=== PATIENT | female | born 1950 | race Two or more races ===

== ENCOUNTER 2017-11-13 00:11 | Inpatient (IN) | payer MEDICARE, OTHER ==
--- NOTE | 2017-11-13 03:03 | NUR ---
REPORT RECEIVED FROM HELEN PINA. PT. ARRIVED ON THE UNIT AT 0303 VIA STRETCHER. PATIENT ADMITTED ON A 5150 HOLD DUE TO GD, DTS, DTO. PER HOLD PT. HAS BEEN OUT OF CONTROL TRYINGTO PUSH HER WAY OUT OF HER RESIDENCE. THE PATIENT HAS BEEN RECENTLY DIAGNOSED WITH PARANOIA AND SCHIZOPHRENIA DX. THE 5150 WAS RECEIVED AND THE DOCUMENTATION APPEARS TO REFLECT THE PRESENTATION OF THE PATIENT. PATIENT IS CURRENTLY LAYING ON HER BED AWAKE, HAS NO S/S OF DISTRESS NOTED. NO COMPLAINTS OF PAIN AT THIS TIME. PATIENT'S BREATHING IS UNLABORED WITH EQUAL FALL AND RISE OF THE CHEST. PATIENT IS ORIENTED X2 ON ROOM AIR. PATIENT HAS BEEN ASSISTED WITH TURNING AND REPOSITIONING Q2HRS AND PRN FOR COMFORT AND CIRCULATION. THE PATIENT HAS NO NEEDS AT THIS TIME. PATIENT IS NOTED TO BE DEPRESSED, WITHDRAWN, DISORGANIZED, AND AGITATED AT THIS TIME. DENIES SI/HI AT THIS TIME. SKIN ASSESSMENT COMPLETED AND PICTURED PLACED IN THE PT'S CHART. THE PATIENT IS UNDER THE CARE OF DR. CAMPUZANO AND THE MEDICAL CARE OF DR. HUSAIN. THE PATIENT'S BELONGING WERE INVENTORIED AND CHECKED FOR CONTRABANDS. PATIENT'S ADVANCED DIRECTIVE PREFERENCES, IMMUNIZATIONS QUESTIONNAIRE AND NECESSARY PAPERWORK ARE COMPLETED AND PLACED IN THE PT'S CHART. PATIENT WAS ORIENTED TO THE ROOM, FLOOR AND STAFF. EDUCATED PT. ON THE USAGE OF THE CALL SHULTZ. BED IS LOCKED AND LOW, BEDSIDES RAILS ARE UP X2 FOR SAFETY. WILL CONTINUE TO MONITOR Q15MNS, WITH THE HELP OF STAFF, FOR SAFETY.
[2017-11-13] MEDS ORDERED: MAGNESIUM HYDROXIDE 30 ML UDC PO PRN (03:30)
[2017-11-13] MEDS ORDERED: NITR100C6 PO (04:24)
[2017-11-13] MEDS ORDERED: ARIP30TA11 (04:24)
[2017-11-13] MEDS: LORAZEPAM 0.5 MG TABLET PO PRN ×3 (04:53→20:20)
--- NOTE | 2017-11-13 04:53 | NUR ---
GPS NOTE. C/O "CAN YOU PLEASE GET ME A GLASS OF WATER AND SOME ATIVAN. I AM FEELING A LITTLE ANXIOUS." ATIVAN 1MG PO GIVEN ORDERED. WILL CONTINUE TO MONITOR FOR SAFETY.
[2017-11-13 08:00] VITALS: BP 126/77
[2017-11-13 10:54] LABS: ALBUMIN 3.5 g/dL (3.4-5.0); BILIRUBIN,TOTAL 0.4 mg/dL (0.2-1.0); CALCIUM, SERUM 9.2 mg/dL (8.5-10.1); CREATININE 0.8 mg/dL (0.6-1.3); POTASSIUM 3.9 mmol/L (3.5-5.1); TOTAL PROTEIN, SERUM 6.3 g/dL (6.4-8.2)
[2017-11-13 16:00] VITALS: BP 136/77
--- NOTE | 2017-11-13 20:00 | NUR ---
GPS RN NOTE: RECEIVED PATIENT AWAKE AND LYING BED COMPLAINED OF ANXIETY AND PRN ATIBAN GIVEN. NO S/S OR COMPLAINTS OF PAIN AT THIS TIME. PATIENT DISPLAYING NO S/S OF APPARENT DISTRESS AT THIS TIME. PATIENT BREATHING IS UNLABORED WITH EQUAL RISE AND FALL OF THE CHEST. PATIENT ALERT AND ORIENTED X 1-2. PT COOPERATIVE AND MED COMPLIANT. PATIENT DENIES SUICIDE IDEATIONS AND HOMICIDAL IDEATIONS AT THIS TIME. PATIENT IS AMBULATORY AND HAS NO OTHER NEEDS AT THIS TIME. PATIENT EDUCATED ON THE USE OF THE CALL SHULTZ. PATIENT BED SIDE RAILS UP X2 FOR SAFETY, BED IS LOCKED AND LOW WILL CONTINUE TO MONITOR AND MAINTAIN AND MAINTAIN SAFETY.
[2017-11-13] MEDS: DIVALPROEX SODIUM 250 MG TABLET.DR PO SCH (20:20)
[2017-11-13 20:31] VITALS: BP 124/70
[2017-11-14] MEDS: ACETAMINOPHEN 325 MG TABLET PO PRN (06:30)
--- NOTE | 2017-11-14 06:33 | NUR ---
GPS RN NOTE: C/O SEVERE PAIN GENERALIZED AND REQUESTED TYLENOL PRN. GIVEN AT 0633. WILL MONITOR FOR EFFECT.
[2017-11-14 07:02] LABS: CHOLESTEROL 165 mg/dL (<200); HDL CHOLESTEROL 79 mg/dL (40-60); LDL 75 mg/dL (0-99); TRIGLYCERIDES 53 mg/dL (30-150)
[2017-11-14 08:00] VITALS: BP 99/61
[2017-11-14] MEDS: PANTOPRAZOLE 40 MG TABLET.DR PO SCH (08:53)
[2017-11-14] MEDS: ARIPIPRAZOLE 5 MG TABLET PO SCH ×2 (08:53→16:19)
[2017-11-14] MEDS: NITROFURANTOIN/NITROFURAN MAC 100 MG CAPSULE PO SCH ×2 (08:53→16:19)
[2017-11-14] MEDS: DIVALPROEX SODIUM 250 MG TABLET.DR PO SCH ×3 (08:54→16:19)
--- NOTE | 2017-11-14 11:06 | NUR ---
RN NOTES PT IS REQUESTED FOR TO BRING GLASSES. CALLED CARLIE, LEFT A MESSAGE.
--- NOTE | 2017-11-14 11:48 | NUR ---
RN NOTES MRSA SWAB DONE. 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
--- NOTE | 2017-11-14 12:03 | NUR ---
Initial Discharge Plan: Pt currently lives with her at [address] [place] [address] ([phone]). Per pt, she would like to return home to her upon discharge. JANI will work with the pt, the family and the MD regarding appropriate discharge plans. SW will form a safe and proper discharge.
--- NOTE | 2017-11-14 12:04 | NUR ---
SW spoke to pt's , Helen Hutchins ([phone]), and discussed how the pt was previously at another hospital but was discharged home before she was ready. Pt's would like to consider a facility upon discharge this time.
--- NOTE | 2017-11-14 15:09 | NUR ---
RN NOTES PT REQUESTED TO USE THE PHONE TO CALL . GAVE PHONE TO PT AND WAS SPEAKING IN A CALM VOICE RIGHT OUTSIDE THE NURSE'S STATION, SITTING IN A ALYSSA-CHAIR. SUDDENLY, PT YELLS AT ON THE PHONE AND THROWS PHONE DOWN THE HALLWAY. PT WALKS TO ROOM WITH NO ASSIST, USES THE BATHROOM, NO INJURIES NOTED AND WALKS TO HER BED. PT STATES, "I AM OKAY. I JUST WANT TO LAY DOWN." WILL CONTINUE TO MONITOR THROUGHOUT SHIFT.
--- NOTE | 2017-11-14 15:16 | NUR ---
SW conducted a substance abuse intervention with the pt.
[2017-11-14 16:04] VITALS: BP 135/56
[2017-11-14 20:00] VITALS: BP 120/65
[2017-11-14] MEDS: LORAZEPAM 0.5 MG TABLET PO PRN (21:15)
--- NOTE | 2017-11-14 21:15 | NUR ---
ATIVAN 1 MG TAB PO GIVEN FOR ANXIETY.
[2017-11-14] MEDS: TEMAZEPAM 7.5 MG CAPSULE PO PRN (22:21)
--- NOTE | 2017-11-14 22:22 | NUR ---
TEMAZEPAM 15 MG CAP PO GIVEN.
[2017-11-15] MEDS: LORAZEPAM 0.5 MG TABLET PO PRN (03:58)
--- NOTE | 2017-11-15 03:58 | NUR ---
Awake, up and about at this time, Ativan 1 mg tab po given.
[2017-11-15] MEDS: ACETAMINOPHEN 325 MG TABLET PO PRN (04:09)
--- NOTE | 2017-11-15 04:09 | NUR ---
C/O GENERALIZED BODY PAIN, 3/10 ON PAIN SCALE, TYLENOL 650 MG 2 TABS PO GIVEN.
[2017-11-15] MEDS: PANTOPRAZOLE 40 MG TABLET.DR PO SCH (07:27)
[2017-11-15 08:31] VITALS: BP 113/48
[2017-11-15] MEDS: ARIPIPRAZOLE 5 MG TABLET PO SCH ×2 (08:42→16:05)
[2017-11-15] MEDS: NITROFURANTOIN/NITROFURAN MAC 100 MG CAPSULE PO SCH ×2 (08:42→16:05)
[2017-11-15] MEDS: DIVALPROEX SODIUM 250 MG TABLET.DR PO SCH ×3 (08:42→16:05)
[2017-11-15 16:22] VITALS: BP 121/73
[2017-11-15 20:00] VITALS: BP 105/57
--- NOTE | 2017-11-16 07:07 | NUR ---
CALM AND QUIET, LAST NIGHT, REDIRECTABLE. NO ACUTE DISTRESS NOTED.
[2017-11-16 08:00] VITALS: BP 109/59
[2017-11-16] MEDS: ARIPIPRAZOLE 5 MG TABLET PO SCH ×2 (08:38→16:07)
[2017-11-16] MEDS: DIVALPROEX SODIUM 250 MG TABLET.DR PO SCH ×3 (08:39→16:07)
[2017-11-16] MEDS: NITROFURANTOIN/NITROFURAN MAC 100 MG CAPSULE PO SCH ×2 (08:39→16:07)
[2017-11-16] MEDS: PANTOPRAZOLE 40 MG TABLET.DR PO SCH (08:39)
[2017-11-16 16:15] VITALS: BP 129/65
[2017-11-16] MEDS: ACETAMINOPHEN 325 MG TABLET PO PRN (17:18)
--- NOTE | 2017-11-16 17:19 | NUR ---
GPS/RN-NOTES PATIENT C/O HEADACHE AND REQUESTING FOR TYLENOL. TYLENOL 650MG P.O GIVEN PRN ORDER. WILL CONT. MONITORING FOR SAFETY.
--- NOTE | 2017-11-16 18:00 | NUR ---
GPS/RN-NOTES PATIENT IN THE DAY ROOM CALM ,NO COMPLAIN OF ANY DISCOMFORT AT THIS TIME.
[2017-11-16 20:00] VITALS: BP 117/61
[2017-11-17] MEDS: TEMAZEPAM 7.5 MG CAPSULE PO PRN (00:42)
--- NOTE | 2017-11-17 01:43 | NUR ---
Pt has been mentally preoccupied, responding to internal stimuli, & with flat affect but med compliant/redirectable.
[2017-11-17 08:00] VITALS: BP 116/66
[2017-11-17] MEDS: NITROFURANTOIN/NITROFURAN MAC 100 MG CAPSULE PO SCH ×2 (08:50→16:58)
[2017-11-17] MEDS: DIVALPROEX SODIUM 250 MG TABLET.DR PO SCH ×3 (08:50→16:58)
[2017-11-17] MEDS: ARIPIPRAZOLE 5 MG TABLET PO SCH ×2 (08:50→21:43)
[2017-11-17] MEDS: PANTOPRAZOLE 40 MG TABLET.DR PO SCH (08:50)
--- NOTE | 2017-11-17 10:14 | NUR ---
GPS RN NOTE: PATIENT AWAKE AND GROOMED FOR BREAKFAST, WAS COMPLIANT WITH MEDICATION. REMAINS QUIET AND WITHDRAWN BUT VISIBLE ON UNIT. CURRENTLY WATCHING TV IN NO APPARENT DISTRESS.
--- NOTE | 2017-11-17 10:45 | NUR ---
APPROACHED RAINER AND PROFANELY ACCUSED OF HER OF STEALING HER STUFF AND THEN REQUESTED TO TAKE A SHOWER. RAINER ASSISTING HER WITH SHOWER.
[2017-11-17] MEDS: ACETAMINOPHEN 325 MG TABLET PO PRN ×2 (11:23→18:50)
--- NOTE | 2017-11-17 11:26 | NUR ---
C/O MILD GENERALIZED ACHES AND REQUESTED AND RECEIVED TYLENOL PRN. CURRENTLY IN BED READING BIBLE WITHOUT COMPLAINT.
[2017-11-17 16:15] VITALS: BP 107/58
[2017-11-17 20:09] VITALS: BP 108/62
[2017-11-18] MEDS: TEMAZEPAM 7.5 MG CAPSULE PO PRN (00:38)
--- NOTE | 2017-11-18 00:39 | NUR ---
PATIENT REQUESTING FOR RESTORIL FOR SLEEP, 15 MG 1 CAP PO GIVEN.
[2017-11-18] MEDS: ACETAMINOPHEN 325 MG TABLET PO PRN ×3 (05:05→14:55)
--- NOTE | 2017-11-18 05:05 | NUR ---
PRN TYLENOL GIVEN PT VERBALIZED OF HAVING GENERALIZED BODY ACHE & REQUESTED TO GET PAIN MEDICINE. PRN TYLENOL GIVEN. MONITORING CLOSELY FOR EFFECTIVENESS.
[2017-11-18 08:00] VITALS: BP 120/69
[2017-11-18] MEDS: PANTOPRAZOLE 40 MG TABLET.DR PO SCH (08:35)
[2017-11-18] MEDS: NITROFURANTOIN/NITROFURAN MAC 100 MG CAPSULE PO SCH ×2 (08:35→17:50)
[2017-11-18] MEDS: DIVALPROEX SODIUM 250 MG TABLET.DR PO SCH ×3 (08:35→17:50)
--- NOTE | 2017-11-18 09:00 | NUR ---
GPS RN NOTE: RECEIVED PATIENT AWAKE AND IN HALLWAY COMPLAINED MILD GENERALIZED PAIN AND GIVEN TYLENOL PRN. PATIENT DISPLAYING NO S/S OF APPARENT DISTRESS AT THIS TIME. PATIENT BREATHING IS UNLABORED WITH EQUAL RISE AND FALL OF THE CHEST. PATIENT ALERT AND ORIENTED X 1-2. CONFUSED AT TIMES AND HAS TO BE REMINDED OF THINGS FREQUENTLY. PT COOPERATIVE AND MED COMPLIANT. PATIENT DENIES SUICIDE IDEATIONS AND HOMICIDAL IDEATIONS AT THIS TIME. PATIENT IS AMBULATORY AND HAS NO OTHER NEEDS AT THIS TIME. PATIENT EDUCATED ON THE USE OF THE CALL SHULTZ. PATIENT BED SIDE RAILS UP X2 FOR SAFETY, BED IS LOCKED AND LOW WILL CONTINUE TO MONITOR AND MAINTAIN AND MAINTAIN SAFETY.
--- NOTE | 2017-11-18 13:20 | NUR ---
JANI faxed a referral for a SNF to [facility] ([phone]).
[2017-11-18 16:00] VITALS: BP 112/73
[2017-11-18 20:22] VITALS: BP 100/57
[2017-11-18] MEDS: ARIPIPRAZOLE 5 MG TABLET PO SCH (22:54)
[2017-11-18] MEDS: LORAZEPAM 0.5 MG TABLET PO PRN (23:23)
[2017-11-19 08:16] VITALS: BP 106/60
[2017-11-19] MEDS: PANTOPRAZOLE 40 MG TABLET.DR PO SCH (09:31)
[2017-11-19] MEDS: DIVALPROEX SODIUM 250 MG TABLET.DR PO SCH ×3 (09:31→17:42)
[2017-11-19] MEDS: NITROFURANTOIN/NITROFURAN MAC 100 MG CAPSULE PO SCH ×2 (09:31→17:42)
[2017-11-19] MEDS: ARIPIPRAZOLE 5 MG TABLET PO SCH ×2 (11:45→21:12)
[2017-11-19] MEDS: ACETAMINOPHEN 325 MG TABLET PO PRN (11:45)
--- NOTE | 2017-11-19 11:45 | NUR ---
MEDICATED FOR HEADACHE WITH TYLENOL 650 MG PO.
--- NOTE | 2017-11-19 13:05 | NUR ---
SW spoke to pt's , Helen Hutchins ([phone]), and informed him that the patient was accepted to [facility] upon discharge which is still to be determined.
--- NOTE | 2017-11-19 13:06 | NUR ---
Per [facility] ([phone]), pt was accepted to [facility].
[2017-11-19 16:40] VITALS: BP 132/10
--- NOTE | 2017-11-19 18:00 | NUR ---
C/O INDIGESTION AFTER LUNCH,GOT RELIEF WITH CARBONATED DRINK.
[2017-11-19] MEDS: ENSURE ENLIVE CHOC 237 ML CAN PO SCH (18:54)
[2017-11-19 20:32] VITALS: BP 103/58
[2017-11-19] MEDS: TEMAZEPAM 7.5 MG CAPSULE PO PRN (20:46)
--- NOTE | 2017-11-19 21:12 | NUR ---
TEMAZEPAM 15 MG CAP PO GIVEN SLEEP.
[2017-11-20 08:29] VITALS: BP 99/68
[2017-11-20] MEDS: PANTOPRAZOLE 40 MG TABLET.DR PO SCH (09:18)
[2017-11-20] MEDS: DIVALPROEX SODIUM 250 MG TABLET.DR PO SCH ×3 (09:18→17:16)
[2017-11-20] MEDS: NITROFURANTOIN/NITROFURAN MAC 100 MG CAPSULE PO SCH ×2 (09:19→17:16)
[2017-11-20] MEDS: ARIPIPRAZOLE 5 MG TABLET PO SCH ×2 (09:19→21:44)
[2017-11-20] MEDS: ENSURE ENLIVE CHOC 237 ML CAN PO SCH ×3 (09:21→16:49)
[2017-11-20] MEDS: ACETAMINOPHEN 325 MG TABLET PO PRN ×2 (09:29→17:16)
--- NOTE | 2017-11-20 12:00 | NUR ---
DR. NEUMANN IN TO SEE PT.
[2017-11-20 15:59] VITALS: BP 132/70
[2017-11-20] MEDS: MAG HYDROX/AL HYDROX/SIMETH 30 ML UDC PO PRN (16:05)
--- NOTE | 2017-11-20 17:58 | NUR ---
DR. CAMPUZANO IN,NO CHANGE IN STATUS.
--- NOTE | 2017-11-20 19:30 | NUR ---
GPS RN NOTE, RECEIVED PATIENT AWAKE AND IN BED, NO S/S OR COMPLAINTS OF PAIN AT THIS TIME. PATIENT DISPLAYING NO S/S OF APPARENT DISTRESS AT THIS TIME. PATIENT BREATHING IS UNLABORED WITH EQUAL RISE AND FALL OF THE CHEST. PATIENT ALERT AND ORIENTED X 2-3 WITH A SPO2 95%. PATIENT IS COMPLIANT WITH MEDS , DISORGANIZED, ANXIOUS, TAKING REDIRECTION, COOPERATIVE, NEEDS REORIENTATION. PATIENT DENIES SUICIDE IDEATIONS AND HOMICIDAL IDEATIONS AT THIS TIME. PATIENT ASSISTED WITH TURNING AND REPOSITIONING Q2HR AND PRN FOR COMFORT AND CIRCULATION. PATIENT HAS NO NEEDS AT THIS TIME. PATIENT EDUCATED ON THE USE OF THE CALL SHULTZ. PATIENT BED SIDE RAILS UP X2 FOR SAFETY, BED IS LOCKED AND LOW WILL CONTINUE TO MONITOR AND MAINTAIN AND MAINTAIN SAFETY.
[2017-11-20 20:45] VITALS: BP 102/52
[2017-11-21] MEDS: LORAZEPAM 0.5 MG TABLET PO PRN (04:35)
--- NOTE | 2017-11-21 04:35 | NUR ---
GPS RN NOTE, PATIENT HAS A COMPLAINT OF FEELING ANXIOUS AND IS REQUESTING ATIVAN AT THIS TIME. PATIENT VITAL SIGNS ARE STABLE. GAVE ATIVAN 1 MG PO Q6HR PRN ORDERED. WILL REASSESS FOR ANXIETY AND I WILL CONTINUE TO MONITOR THIS PATIENT.
[2017-11-21 08:01] VITALS: BP 116/68
[2017-11-21] MEDS: PANTOPRAZOLE 40 MG TABLET.DR PO SCH (08:22)
[2017-11-21] MEDS: NITROFURANTOIN/NITROFURAN MAC 100 MG CAPSULE PO SCH ×2 (08:58→16:05)
[2017-11-21] MEDS: ARIPIPRAZOLE 5 MG TABLET PO SCH ×2 (08:58→21:02)
[2017-11-21] MEDS: DIVALPROEX SODIUM 250 MG TABLET.DR PO SCH ×3 (08:58→16:05)
[2017-11-21] MEDS: ENSURE ENLIVE CHOC 237 ML CAN PO SCH ×3 (09:28→16:08)
--- NOTE | 2017-11-21 15:27 | NUR ---
SW spoke to pt's , Helen Hutchins ([phone]), and confirmed with him that the pt will be discharging tomorrow.
[2017-11-21 16:00] VITALS: BP 139/87
[2017-11-21 20:00] VITALS: BP 127/70
--- NOTE | 2017-11-21 20:00 | NUR ---
PATIENT AWAKE IN ACTIVITY ROOM WATCHING TV. ALERT AND ORIENTED X 3. NO S/S OR COMPLAINTS OF PAIN AT THIS TIME, NO S/S OF APPARENT DISTRESS. PATIENT BREATHING IS UNLABORED WITH EQUAL RISE AND FALL OF THE CHEST. WITH A SPO2 99%. PATIENT IS COMPLIANT WITH MEDS AND AMBULATORY, CALM, QUIET, AND COOPERATIVE, DENIES SUICIDE IDEATIONS AND HOMICIDAL IDEATIONS AT THIS TIME. PATIENT HAS NO NEEDS AT THIS TIME. PATIENT REEDUCATED ON THE USE OF THE CALL SHULTZ. PATIENT BED SIDE RAILS UP X2 FOR SAFETY, BED IS LOCKED AND LOW WILL CONTINUE TO MONITOR Q15 FOR SAFETY
[2017-11-21] MEDS: MAG HYDROX/AL HYDROX/SIMETH 30 ML UDC PO PRN (21:00)
[2017-11-21] MEDS: ACETAMINOPHEN 325 MG TABLET PO PRN (21:01)
[2017-11-22] MEDS: TEMAZEPAM 7.5 MG CAPSULE PO PRN (02:40)
[2017-11-22] MEDS: ACETAMINOPHEN 325 MG TABLET PO PRN (02:40)
[2017-11-22] MEDS: PANTOPRAZOLE 40 MG TABLET.DR PO SCH (07:45)
[2017-11-22 08:39] VITALS: BP 141/63
[2017-11-22] MEDS: ARIPIPRAZOLE 5 MG TABLET PO SCH (08:46)
[2017-11-22] MEDS: DIVALPROEX SODIUM 250 MG TABLET.DR PO SCH (08:46)
[2017-11-22] MEDS: ENSURE ENLIVE CHOC 237 ML CAN PO SCH (08:48)
--- NOTE | 2017-11-22 09:34 | NUR ---
SW spoke to pt's , Helen Hutchins ([phone]), and informed him that the pt is calm and is cooperating with the discharge set for today.
--- NOTE | 2017-11-22 10:29 | NUR ---
DR. CAMPUZANO GAVE AN ORDER TO THE CHARGE NURSE TO D/C [facility] AND D/C TO [facility] AND TO FOLLOW UP WITH PSYCH AND MEDICAL DOCTORS. Addendum: 11/22/17 at 1037 by JORDEN PETERS RN TO CONTINUE SAME MEDS INCLUDING PRN
--- NOTE | 2017-11-22 11:45 | NUR ---
GPS/RN - Discharge Patient discharged to [facility] in stable condition, report given to Verna ARAMBULA for continuity of care. Discharge paperwork signed by the patient. All belongings given and she denies any missing items. Patient refused photos to be taken on her skin breakdown, stated "It's not a big deal." Patient compliant with medications, calm and cooperative with treatment plans. Patient denies SI/HI, behavior improved, psychiatric treatment plans met, UTI resolved. Endorsed to ambulance crew accordingly.
--- NOTE | 2017-11-22 12:43 | NUR ---
Discharge Note: Pt was discharged to [facility] located at [address] [place] [address] ([phone]). Pt was transported via [facility] (Trip #[id number]) at 11AM. Pts , Helen Hutchins ([phone]) was notified and approved of this placement. Upon discharge, the pt denied suicidal and homicidal ideation as well as visual and auditory hallucinations. Pts mood and affect were calm and euthymic upon discharge. The patient will be under the care of psychiatrist, Dr. Dow, who is located at [address] [place] [address]; ) and courtroom deputy, Dr. Dash, who is located at [address] [place] [address]; ). Addendum: 02/14/18 at 1548 by RACHEL GUNTER Upon discharge, pt was provided with three substance abuse referrals: [facility] [address] [place] [address] Tel. [facility] [address] [place] Provider Mental Health Treatment Tele-dermatology HIV Services Telemedicine Services [facility] [address] [place] [address] [facility] [address] [place] [address] Follow-up Appointments [facility] [address] [place] [address] Start to Stop smoking cessation program Smoking cessation assessment $59 Smoking cessation follow up $49 each
--- NOTE | 2018-02-14 15:48 | NUR ---
Substance Abuse Follow Up: Pt is excluded due to the fact that she was discharged to a correction facility called [facility].
== END 2017-11-22 11:45 | DRG 885 ==
LOC: GPS 03:01
PROVIDERS: ADMIT Psychiatry & Neurology Psychiatry; ATTEND Psychiatry & Neurology Psychiatry
DX: F25.9 Schizoaffective disorder, unspecified (principal); N39.0 Urinary tract infection, site not specified; F29 Unspecified psychosis not due to a substance or known physiological condition; F41.9 Anxiety disorder, unspecified; F31.9 Bipolar disorder, unspecified
CPT/HCPCS: 36415; 80048-TC; 80053-TC; 80061-TC; 80164-TC; 87081-TC

== ENCOUNTER 2018-06-10 12:23 | Inpatient (IN) | payer MEDICARE, OTHER ==
[~2018-06-10] VITALS: Ht 170.2 cm; Wt 80.3 kg
[~2018-06-10 12:23] MED LIST: NITR100C6 PO
[2018-06-10] MEDS ORDERED: MAGNESIUM HYDROXIDE 30 ML UDC PO PRN (14:30)
[2018-06-10 16:00] VITALS: BP 104/50
--- NOTE | 2018-06-10 16:27 | NUR ---
GPS/RN-NOTES ADMITTED 67 FEMALE PATIENT FROM [facility]. PATIENT ON 5150 FOR DTS/GD. UPON FACE TO FACE ASSESSMENT PATIENT ALERT ORIENTED X2, AMBULATORY WITH ASSIST. PATIENT STATED" I'M NOT SUICIDAL BUT I'M DEPRESSED". BODY ASSESSMENT AND CONTRABAND DONE. PATIENT'S RIGHT BOOKLET WAS GIVEN AND REVIEWED WITH THE PATIENT WITH UNDERSTANDING. PATIENT WAS ORIENTED IN THE UNIT AND UNIT POLICIES. CARLIE BRIAN ) MADE AWARE OF THE ADMISSION. DR. LOERA MADE AWARE WITH ORDERS.LUZ HUSAIN ALSO MADE AWARE OF THE ADMISSION. MRSA DONE AND SEND TO THE LABS.
[2018-06-10 20:00] VITALS: BP 114/60
[2018-06-10] MEDS: ACETAMINOPHEN 325 MG TABLET PO PRN (20:18)
[2018-06-10] MEDS: CEPHALEXIN MONOHYDRATE 500 MG CAPSULE PO SCH (20:18)
--- NOTE | 2018-06-10 20:19 | NUR ---
C/O LOWER BACK PAIN, TYLENOL 650 MG TAB PO GIVEN.
[2018-06-11] MEDS: ZOLPIDEM TARTRATE 5 MG TABLET PO PRN ×2 (01:12→22:55)
[2018-06-11 08:00] VITALS: BP 118/61
[2018-06-11 08:42] LABS: ALBUMIN 4.2 g/dL (3.4-5.0); BILIRUBIN,TOTAL 0.6 mg/dL (0.2-1.0); CALCIUM, SERUM 9.8 mg/dL (8.5-10.1); CREATININE 1.1 mg/dL (0.6-1.3); POTASSIUM 3.7 mmol/L (3.5-5.1); TOTAL PROTEIN, SERUM 7.5 g/dL (6.4-8.2)
[2018-06-11] MEDS: ACETAMINOPHEN 325 MG TABLET PO PRN (08:56)
[2018-06-11] MEDS: CEPHALEXIN MONOHYDRATE 500 MG CAPSULE PO SCH ×2 (08:56→20:20)
--- NOTE | 2018-06-11 08:56 | NUR ---
RN NOTES ADMINISTERED TYLENOL 650 MG PO PRN FOR RIGHT BUTTOCK PAIN PER PATIENT REQUEST, CONTINUED MONITORING.
--- NOTE | 2018-06-11 08:57 | NUR ---
WOUND CARE CONSULT: PT IS AMBULATORY AND CONTINENT. PT PRESENTS WITH FIRM AREA TO RT BUTTOCK WITH BLANCHABLE REDNESS, PRESENT ON ADMISSION. PT STATES SHE BRUISED THE MUSCLE IN THAT AREA PRIOR TO ADMISSION. DEFER TO . WILL SEE PRN. Addendum: 06/11/18 at 0859 by SETH DESOUZA WNDNU Amended: Links added.
[2018-06-11] MEDS ORDERED: ZOLP10TA6 PO (09:41)
[2018-06-11] MEDS ORDERED: BUPR150T10 PO (09:41)
[2018-06-11] MEDS ORDERED: CEPH-570 PO (09:41)
[2018-06-11] MEDS ORDERED: LAMO200T PO (09:41)
[2018-06-11] MEDS ORDERED: RISP2TAB23 PO (09:41)
--- NOTE | 2018-06-11 10:42 | NUR ---
JANI called the pt's , Helen ([phone]), and left a message on his voicemail stating that the SW would like a call back to discuss the discharge plan.
--- NOTE | 2018-06-11 12:23 | NUR ---
Group Note: Group note: Pt attended a group session on 06/11/18 at 11AM discussing the topic of their psychiatric admission and an area in their life that they would like to work on and improve. S: Pt stated that she was admitted to the hospital because she is Bipolar Depressive and went on to explain her difficult life and the cycle of her being in a hospital for the past 18 years. Pt stated, I do not want to be in this constant cycle so hopeful this is the last hospital admission for me. O: Pt was present during the group session and was cooperative. Pt appeared to be in a euthymic mood and presented with a calm and pleasant affect. Pt was emotional when discussing her family life and the trauma that she experienced before being diagnosed. A: Pt understood that she has been through many tough situations in her life leading up to this point and that is important for her to be able to recognize her support system and how she can help herself as well so that she can avoid being admitted to hospitals. P: Pt will continue milieu treatment and medication stabilization.
--- NOTE | 2018-06-11 12:28 | NUR ---
Helen ([phone]), pt's , called the SW and the pt's discharge plan was discussed. The pt's believes that the pt can benefit from a [facility] facility once again and the SW informed him about one that is nearby their home called [facility]. Pt's stated that he would like the pt to be admitted there if possible.
--- NOTE | 2018-06-11 13:53 | NUR ---
Initial Discharge Plan: Pt currently resides at her home with her , Helen ([phone]), located at [address] [place] [address]. Per pt, she would like to go to a assisted facility and per her , he would like her to be placed locally to their home. JANI will work with the pt and the MD regarding appropriate discharge planning. SW will form a safe and proper discharge.
[2018-06-11 16:00] VITALS: BP 122/90
[2018-06-11] MEDS: risperiDONE-M 0.5 MG TAB.RAPDIS PO SCH (17:36)
[2018-06-11 20:00] VITALS: BP 128/79
[2018-06-11] MEDS: LamoTRIgine 100 MG TABLET PO SCH (20:20)
[2018-06-12] MEDS: LORAZEPAM 0.5 MG TABLET PO PRN (05:57)
[2018-06-12 08:00] VITALS: BP 117/72
[2018-06-12] MEDS: CEPHALEXIN MONOHYDRATE 500 MG CAPSULE PO SCH ×2 (08:30→20:59)
[2018-06-12] MEDS: LamoTRIgine 100 MG TABLET PO SCH ×2 (08:31→20:59)
[2018-06-12] MEDS: risperiDONE-M 0.5 MG TAB.RAPDIS PO SCH ×2 (08:32→16:33)
[2018-06-12] MEDS: BUPROPION XL 150 MG TAB.ER.24 PO SCH (08:46)
[2018-06-12] MEDS: ACETAMINOPHEN 325 MG TABLET PO PRN (08:46)
[2018-06-12 16:00] VITALS: BP 120/75
[2018-06-12 20:06] VITALS: BP 139/82
[2018-06-12] MEDS: ZOLPIDEM TARTRATE 5 MG TABLET PO PRN (21:00)
[2018-06-13 08:00] VITALS: BP 137/66
[2018-06-13] MEDS: LORAZEPAM 0.5 MG TABLET PO PRN (08:24)
[2018-06-13] MEDS: BUPROPION XL 150 MG TAB.ER.24 PO SCH (08:25)
[2018-06-13] MEDS: risperiDONE-M 0.5 MG TAB.RAPDIS PO SCH ×2 (08:25→17:26)
[2018-06-13] MEDS: LamoTRIgine 100 MG TABLET PO SCH ×2 (08:25→20:38)
[2018-06-13] MEDS: CEPHALEXIN MONOHYDRATE 500 MG CAPSULE PO SCH ×2 (08:26→20:37)
--- NOTE | 2018-06-13 13:23 | NUR ---
JANI faxed a referral to [facility] with attention to Bonnie to the fax number: [phone].
[2018-06-13 16:00] VITALS: BP 133/84
[2018-06-13 20:00] VITALS: BP 133/76
[2018-06-13] MEDS: ZOLPIDEM TARTRATE 5 MG TABLET PO PRN (20:39)
--- NOTE | 2018-06-13 20:39 | NUR ---
AMBIEN 10 MG TAB PO GIVEN FOR SLEEP PER PATIENT'S REQUEST.
[2018-06-14 08:00] VITALS: BP 144/79
[2018-06-14] MEDS: CEPHALEXIN MONOHYDRATE 500 MG CAPSULE PO SCH ×2 (09:00→21:00)
[2018-06-14] MEDS: LamoTRIgine 100 MG TABLET PO SCH ×2 (09:00→21:01)
[2018-06-14] MEDS: BUPROPION XL 150 MG TAB.ER.24 PO SCH (09:00)
[2018-06-14] MEDS: risperiDONE-M 0.5 MG TAB.RAPDIS PO SCH ×2 (09:01→17:14)
--- NOTE | 2018-06-14 15:06 | NUR ---
isolative and in room most of the day.
[2018-06-14 16:00] VITALS: BP 124/63
[2018-06-14 20:00] VITALS: BP 107/51
[2018-06-14] MEDS: ZOLPIDEM TARTRATE 5 MG TABLET PO PRN (21:01)
[2018-06-15 07:55] LABS: BASOPHILS % (AUTO) 0.9 % (0.0-2.0); EOSINOPHILS % (AUTO) 2.6 % (0.0-6.0); HEMATOCRIT 40 % (33-45); HEMOGLOBIN 13.4 g/dL (11.5-14.8); LYMPHOCYTES # (AUTO) 1.7 /CMM (0.8-4.8); LYMPHOCYTES % (AUTO) 32.2 % (20.0-44.0); MEAN CORPUSCULAR HGB CONC 33 g/dl (31.0-36.0); MEAN CORPUSCULAR VOLUME 99 fL (82-100); MONOCYTES # (AUTO) 0.7 /CMM (0.1-1.30); MONOCYTES % (AUTO) 12.4 % (2.0-12.0); NEUTROPHILS # (AUTO) 2.8 /CMM (1.8-8.9); NEUTROPHILS % (AUTO) 51.9 % (43.0-81.0); PLATELET COUNT (AUTO) 186 /CMM (150-450); RED BLOOD CELL COUNT(AUTO) 4.08 MIL/uL (4.0-5.2); WHITE BLOOD COUNT (AUTO) 5.4 K/uL (4.3-11.0)
[2018-06-15 08:05] VITALS: BP 127/70
[2018-06-15 08:12] LABS: ALBUMIN 3.8 g/dL (3.4-5.0); BILIRUBIN,TOTAL 0.4 mg/dL (0.2-1.0); CALCIUM, SERUM 9.3 mg/dL (8.5-10.1); CREATININE 0.9 mg/dL (0.6-1.3); MAGNESIUM 2.3 mg/dL (1.8-2.4); POTASSIUM 4.3 mmol/L (3.5-5.1); TOTAL PROTEIN, SERUM 6.9 g/dL (6.4-8.2)
[2018-06-15] MEDS: CEPHALEXIN MONOHYDRATE 500 MG CAPSULE PO SCH (10:15)
[2018-06-15] MEDS: BUPROPION XL 150 MG TAB.ER.24 PO SCH (10:15)
[2018-06-15] MEDS: risperiDONE-M 0.5 MG TAB.RAPDIS PO SCH ×2 (10:15→16:36)
[2018-06-15] MEDS: LamoTRIgine 100 MG TABLET PO SCH ×2 (10:16→21:06)
[2018-06-15 16:12] VITALS: BP 121/68
[2018-06-15 20:35] VITALS: BP 113/76
[2018-06-15] MEDS: ZOLPIDEM TARTRATE 5 MG TABLET PO PRN (21:07)
--- NOTE | 2018-06-15 21:08 | NUR ---
AMBIEN 10 MG PO GIVEN FOR SLEEP PER PATIENT'S REQUEST.
[2018-06-16 08:00] VITALS: BP 141/86
[2018-06-16] MEDS: risperiDONE-M 0.5 MG TAB.RAPDIS PO SCH ×2 (08:47→18:19)
[2018-06-16] MEDS: BUPROPION XL 150 MG TAB.ER.24 PO SCH (08:47)
[2018-06-16] MEDS: LamoTRIgine 100 MG TABLET PO SCH ×2 (08:47→20:45)
--- NOTE | 2018-06-16 09:12 | NUR ---
JANI contacted Bonnie ([phone]) from [facility] and she stated that the pt does not have any SNF days remaining.
--- NOTE | 2018-06-16 09:18 | NUR ---
JANI faxed the referral to [facility] to [phone] because the pt was there previously and the facility often works around the available SNF days.
--- NOTE | 2018-06-16 09:19 | NUR ---
SW called the pt's , Helen ([phone]), and left a message on his voicemail stating that the pt does not have any SNF days available and that the SW is trying to figure out a plan in terms of placement.
[2018-06-16 16:00] VITALS: BP 113/72
[2018-06-16 20:00] VITALS: BP 123/81
[2018-06-16] MEDS: LORAZEPAM 0.5 MG TABLET PO PRN (20:39)
[2018-06-16] MEDS: ZOLPIDEM TARTRATE 5 MG TABLET PO PRN (23:00)
[2018-06-17] MEDS: MAG HYDROX/AL HYDROX/SIMETH 30 ML UDC PO PRN ×2 (04:43→11:56)
[2018-06-17 08:00] VITALS: BP 119/63
[2018-06-17] MEDS: LamoTRIgine 100 MG TABLET PO SCH ×2 (08:38→21:12)
[2018-06-17] MEDS: BUPROPION XL 150 MG TAB.ER.24 PO SCH (08:38)
[2018-06-17] MEDS: risperiDONE-M 0.5 MG TAB.RAPDIS PO SCH ×2 (08:39→16:10)
--- NOTE | 2018-06-17 09:08 | NUR ---
SW received call from [facility] at [facility] ([phone]) who reported that they are unable to take the patient, as she was discharged from their facility to home. SW placed call to pt's , Helen ([phone]) and left a message on his cell phone informing him that patient will need alternate placement at this time. Patient may benefit from Home with Home Health upon discharge. SW will continue to follow-up to ensure a safe and proper discharge. Addendum: 06/17/18 at 1025 by DESTINI CAMPOS 1000: Received call back from pt's , Helen. Pt's expressed concern about patient's lack of SNF days and inquired if they have been regenerated yet. Per , the patient was discharged from her previous SNF ([facility]) on 02/26/18, but was re-admitted to [facility] on 04/13 or 04/14/18 for a psychiatric admission. SW provided education about Medicare SNF day regeneration, and that patient was not out of the hospital long enough for her days to regenerate. Pt's verbalized understanding, but stated that he was going to call [facility] to inquire some more. Explored options in regards to an Intensive Outpatient Program and Home Health with the , and he was agreeable with both of these options. was agreeable with SW sending referral to [facility] for potential enrollment upon discharge. SW will continue to follow-up.
--- NOTE | 2018-06-17 10:44 | NUR ---
JANI faxed referral to [facility] (ph. [phone]; f [phone]) Attn: Call Center. JANI will continue to follow-up. Addendum: 06/17/18 at 1439 by DESTINI CAMPOS At 1430, JANI placed follow-up call to [facility] intake (p [phone]) and spoke with [employer], Keshia. Per Keshia, they are reviewing the referral. She further stated that they will not be able to schedule an intake appointment for the patient until they know when she is going to be discharged. JANI will continue to follow-up and collaborate with the treatment team about pt's discharge date.
--- NOTE | 2018-06-17 11:56 | NUR ---
GPS RN NOTE MAALOX 30ML ADMINISTERED FOR PT C/O OF INDIGESTION AFTER DRINKING ORANGE JUICE.
--- NOTE | 2018-06-17 13:00 | NUR ---
GPS RN NOTE PT STATED SHE NO LONGER HAS INDIGESTION AFTER MAALOX ADMINISTRATION.
[2018-06-17 16:00] VITALS: BP 118/64
[2018-06-17] MEDS: LORAZEPAM 0.5 MG TABLET PO PRN (19:42)
[2018-06-17 20:00] VITALS: BP 120/68
[2018-06-17] MEDS: ZOLPIDEM TARTRATE 5 MG TABLET PO PRN (23:11)
[2018-06-18 08:00] VITALS: BP 125/74
[2018-06-18] MEDS: risperiDONE-M 0.5 MG TAB.RAPDIS PO SCH ×2 (09:03→17:07)
[2018-06-18] MEDS: LORAZEPAM 0.5 MG TABLET PO PRN ×2 (09:03→17:07)
[2018-06-18] MEDS: BUPROPION XL 150 MG TAB.ER.24 PO SCH (09:03)
[2018-06-18] MEDS: LamoTRIgine 100 MG TABLET PO SCH ×2 (09:03→21:25)
--- NOTE | 2018-06-18 13:03 | NUR ---
JANI called Keshia ([phone]), IOP weatherization coordinator, and inquired about whether or not the pt was admitted to the program. She stated that the SW has to call back when there is a discharge date so that the intake can be scheduled.
--- NOTE | 2018-06-18 14:39 | NUR ---
SW called the pt's , Helen ([phone]), and informed him that the pt is going to be discharged tomorrow and will be attending an IOP program at [facility]. He stated that he would come bean picker machine operator the pt at 1pm and the SW stated that she would coordinate the intake with the fashion coordinator, Keshia.
--- NOTE | 2018-06-18 14:59 | NUR ---
JANI called Keshia ([phone]), IOP hris coordinator, with the pt and the pt's discharge and intake appointments were discussed. The pt was also given more information about the program.
[2018-06-18 16:00] VITALS: BP 119/80
--- NOTE | 2018-06-18 16:04 | NUR ---
Group note: Pt attended a group session on 06/18/18 at 11AM discussing the topic of their psychiatric admission and a goal that they can determine for once they get discharged from the hospital. S: Pt stated that she was admitted to the hospital because she is Bipolar Depressive. When asked to identify a goal that she had for when she is discharged from the hospital, the pt stated that she wants to participate in her IOP program and succeed. O: Pt was present during the group session and was cooperative. Pt appeared to be in a depressed mood and presented with a distressed affect. Pt presented as hyperverbal and had to be redirected to the topic being discussed a few times. A: Pt understood that she has been provided with an opportunity to be with her and still receive treatment. She stated that she understands that she has to participate in her IOP program to get the most benefit out of it. P: Pt will continue milieu treatment and medication stabilization.
[2018-06-18 20:19] VITALS: BP 129/78
[2018-06-18] MEDS: ZOLPIDEM TARTRATE 5 MG TABLET PO PRN (21:48)
[2018-06-19 08:00] VITALS: BP 133/81
--- NOTE | 2018-06-19 08:00 | NUR ---
GPS RN AM NOTES RECEIVED PATIENT IN THE HER ROOM A/O, PATIENT DEPRESS, REDIRECTABLE. ENCOURAGED TO EXPRESS FEELINGS AND CONCERNS. PT.HAS NO ACUTE RESPIRATORY DISTRESS, V/S STABLE. SCHEDULED MEDICATION ADMINISTERED -PT IS COMPLIANT.PATIENT ATTENDED GROUP THERAPY,WILL CONTINUE TO MONITOR Q 15 AND BEHAVIOR.
[2018-06-19] MEDS: BUPROPION XL 150 MG TAB.ER.24 PO SCH (08:37)
[2018-06-19] MEDS: LamoTRIgine 100 MG TABLET PO SCH (08:37)
[2018-06-19] MEDS: risperiDONE-M 0.5 MG TAB.RAPDIS PO SCH (08:37)
--- NOTE | 2018-06-19 09:41 | NUR ---
DR. LOERA GAVE AN ORDER TO D/C HOLD AND D/C HOME AND TO FOLLOW UP WITH PSYCH AND MEDICAL DOCTORS.
--- NOTE | 2018-06-19 10:54 | NUR ---
DR. NEUMANN MADE AWARE OF THE DISCHARGE.
--- NOTE | 2018-06-19 13:50 | NUR ---
DISCHARGED PT HOME WITH STABLE V/S.PRESCRIPTIONS,BELONGINGS AND JEWELRIES GIVEN TO THE PT'S ,CARLIE.DC'D .DENIES ANY PAIN OR DISTRESS.WITH STABLE V/S.COOPERATIVE AND PLEASANT.
--- NOTE | 2018-06-19 14:35 | NUR ---
Discharge Note: Pt was discharged home to [address] [place] [address]; ([phone]). Pts , Helen Hutchins ([phone]), picked up the pt at 1pm. Upon discharge, the pt appeared to be in a euthymic mood and presented with an anxious yet content affect. Pt stated that she was excited to return to her home and be involved in a program. Pt denied both suicidal and homicidal ideation as well as auditory and visual hallucinations. Pt was referred to be under the care of a psychiatrist, Dr. Edis Tee, located at [id number], [place] [address]; and an tree pruner, Dr. Jorge L Dennis, located at [address] [place] [address]; . Pt has an intake appointment with [facility] Intensive Outpatient Program for 06/20/18. Pt will be attending the program three times a week for a particular amount of hours a day.
== END 2018-06-19 13:45 | disposition home or self-care (01) | DRG 885 ==
LOC: GPS 13:54
PROVIDERS: ADMIT Psychiatry & Neurology Psychiatry; ATTEND Psychiatry & Neurology Psychiatry
DX: F25.1 Schizoaffective disorder, depressive type (principal); N17.0 Acute kidney failure with tubular necrosis; N39.0 Urinary tract infection, site not specified; E44.1 Mild protein-calorie malnutrition; R45.851 Suicidal ideations; E66.9 Obesity, unspecified; Z68.27 Body mass index [BMI] 27.0-27.9, adult; E88.09 Other disorders of plasma-protein metabolism, not elsewhere classified; M62.50 Muscle wasting and atrophy, not elsewhere classified, unspecified site
CPT/HCPCS: 36415; 80053-TC; 80061-TC; 83735-TC; 85025-TC; 87081-TC

== ENCOUNTER 2018-11-22 14:59 | Inpatient (IN) | payer MEDICARE, OTHER ==
[~2018-11-22] VITALS: Ht 162.6 cm; Wt 81.6 kg
--- NOTE | 2018-11-22 14:59 | NUR ---
URINE COLLECTED AND SENT TO LAB.
[2018-11-22 15:27] LABS: BASOPHILS # (AUTO) 0.1 /CMM (0.0-0.2); BASOPHILS % (AUTO) 0.8 % (0.0-2.0); EOSINOPHILS % (AUTO) 0.2 % (0.0-6.0); HEMATOCRIT 38 % (33-45); LYMPHOCYTES # (AUTO) 1.3 /CMM (0.8-4.8); MEAN CORPUSCULAR HGB CONC 34 g/dl (31.0-36.0); MEAN CORPUSCULAR VOLUME 97 fL (82-100); MONOCYTES # (AUTO) 0.4 /CMM (0.1-1.30); MONOCYTES % (AUTO) 5.6 % (2.0-12.0); NEUTROPHILS # (AUTO) 5.8 /CMM (1.8-8.9); NEUTROPHILS % (AUTO) 76.4 % (43.0-81.0); PLATELET COUNT (AUTO) 220 /CMM (150-450); RED BLOOD CELL COUNT(AUTO) 3.94 MIL/uL (4.0-5.2); WHITE BLOOD COUNT (AUTO) 7.6 K/uL (4.3-11.0)
[2018-11-22 15:28] LABS: APPEARANCE,URINE SL CLOUDY (CLEAR); BILIRUBIN,URINE NEGATIVE (NEGATIVE); BLOOD, URINE NEGATIVE Ery/uL (NEGATIVE); COLOR,URINE YELLOW (YELLOW); KETONES,URINE NEGATIVE (NEGATIVE); LEUKOCYTE ESTERASE ,URINE NEGATIVE (NEGATIVE); NITRITE, URINE NEGATIVE (NEGATIVE); PROTEIN,URINE NEGATIVE (NEGATIVE); UGLUCOSE NEGATIVE (NEGATIVE); UROBILINOGEN,URINE 0.2 EU/dL (0.2)
[2018-11-22 15:46] LABS: CALCIUM, SERUM 9.4 mg/dL (8.5-10.1); CARBON DIOXIDE 27 mmol/L (21-32); CHLORIDE 107 mmol/L (98-107); CREATININE 1.1 mg/dL (0.6-1.3); GLUCOSE 116 mg/dL (74-106); POTASSIUM 4.4 mmol/L (3.5-5.1); SODIUM SERUM 145 mmol/L (136-145); UREA NITROGEN, BLOOD 17 mg/dL (7-18)
[2018-11-22 15:52] LABS: ALANINE AMINOTRANSFERASE 30 U/L (12-78); ALBUMIN 4.2 g/dL (3.4-5.0); ALKALINE PHOSPHATASE 81 U/L (46-116); ASPARTATE AMINOTRANSFERASE 20 U/L (15-37); BILIRUBIN,TOTAL 0.4 mg/dL (0.2-1.0); TOTAL PROTEIN, SERUM 7.2 g/dL (6.4-8.2)
[2018-11-22] MEDS ORDERED: LIPA1CAP21 PO (15:53)
[2018-11-22] MEDS ORDERED: MAG30ORA PO (15:53)
[2018-11-22] MEDS ORDERED: ARIP20TA4 PO (15:53)
[2018-11-22] MEDS ORDERED: OLAN2.5T3 PO (15:53)
[2018-11-22] MEDS ORDERED: ARIP5TAB10 PO (15:53)
[2018-11-22] MEDS ORDERED: LAMO200T2 PO (15:53)
[2018-11-22] MEDS ORDERED: ACET-2605 PO (15:53)
[2018-11-22] MEDS ORDERED: DOCU-141 PO (15:53)
[2018-11-22] MEDS ORDERED: BENZ0.5T43 PO (15:53)
[2018-11-22] MEDS ORDERED: ZOLP5TAB2 PO (15:53)
[2018-11-22] MEDS ORDERED: FAMO-131 PO (15:53)
[2018-11-22] MEDS ORDERED: ACET-868 PO (15:53)
[2018-11-22 15:57] LABS: ACETAMINOPHEN < 2 ug/ml (10-30); SALICYLATE < 2.8 mg/dL (2.8-20.0)
[2018-11-22 16:04] LABS: ALCOHOL, BLOOD < 3 mg/dL (0-0); BILIRUBIN,DIRECT 0.1 mg/dL (0.0-0.2)
--- NOTE | 2018-11-22 16:54 | NUR ---
REPORT GIVEN TO RALF ROCHA FOR KHADIJAH.
--- NOTE | 2018-11-22 17:29 | NUR ---
GPS/RN RECEIVED PT FROM ER(ORIGINALLY FROM [facility]) ON 5150 FRO GD AMBULATORY, A/O X1 AGITATED REFUSED TO SIGN ADMISSION FORMS. ADMITTING ORDERS FROM DR. LOERA RECEIVED AND CARRIED OUT. [facility] GROUP DR FARRELL SEEN THE PT. ON FACE TO FACE ASSESSMENT NO SI OR HI REPORTED. PT CHECKED FOR CONTRABAND.
[2018-11-22 17:40] VITALS: BP 152/101
[2018-11-22] MEDS ORDERED: ACETAMINOPHEN 325 MG TABLET PO PRN ×2 (18:00→18:30)
[2018-11-22] MEDS ORDERED: ZOLPIDEM TARTRATE 5 MG TABLET PO PRN (18:00)
[2018-11-22] MEDS ORDERED: MAG HYDROX/AL HYDROX/SIMETH 30 ML UDC PO PRN ×2 (18:00→18:30)
[2018-11-22] MEDS ORDERED: MAGNESIUM HYDROXIDE 30 ML UDC PO PRN (18:00)
[2018-11-22 18:02] VITALS: BP 113/80
[2018-11-22] MEDS ORDERED: INSULIN REGULAR, HUMAN 100 UNIT/ML 3 ML VIAL SQ PRN (18:30)
[2018-11-22] MEDS ORDERED: MISCELLANEOUS MED 1 EA EA PO PRN (18:30)
[2018-11-22] MEDS ORDERED: DEXTROSE 50%-WATER 50 ML DISP.SYRIN IV PRN (18:30)
--- NOTE | 2018-11-22 19:30 | NUR ---
GPS ADMISSION NOTE, RECEIVED PATIENT FROM [facility]. PATIENT ADMITTED ON A 5150 HOLD FOR GD. PER HOLD PATIENT IS ALERT X 1, CONFUSED, DISORGANIZED, AND DISORIENTED. 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 PATIENT IS RELIGIOUSLY PREOCCUPIED HAS BIBLE IN HER HAND AND ACTING BIZARRE IN THE HALLWAY. PATIENT UNABLE TO MAKE VIABLE PLAN FOR SELF CARE AT THIS TIME. THE 5150 WAS REVIEWED AND THE DOCUMENTATION IN THE 5150 HOLD APPEARS TO REFLECT THE PRESENTATION OF THE PATIENT. UPON FACE TO FACE ASSESSMENT PATIENT IS NOTED TO BEING ANXIOUS, DISHEVELED, DISORGANIZED, DEMANDING, HYPERVERBAL, UNCOOPERATIVE, AND NEEDS REDIRECTION. PATIENT IS CURRENTLY LYING IN BED AWAKE, HAS NO S/S OR COMPLAINTS OF PAIN. PATIENT IS DISPLAYING NO S/S OF APPARENT DISTRESS. PATIENT BREATHING IS UNLABORED WITH EQUAL RISE AND FALL OF THE CHEST. PATIENT IS ALERT AND ORIENTATED X 1 ON ROOM AIR. PATIENT ASSISTED WITH TURING AND REPOSITIONING Q2HR AND PRN FOR COMFORT AND CIRCULATION. PATIENT HAS NO NEEDS AT THIS TIME. PATIENT DENIES SUICIDE IDEATIONS AND HOMICIDAL IDEATIONS AT THIS TIME. PATIENT ADVISED OF HER HOLD AND PATIENT RIGHTS BOOKLET GIVEN. PATIENT IS UNDER THE PSYCHIATRIC CARE OF DR. MOORE AND THE MEDICAL CARE OF DR FARRELL. PATIENT BELONGINGS WERE INVENTORIED AND CHECKED FOR CONTRABAND. ALL CONTRABAND REMOVED AND STORED IN PATIENT HALLWAY LOCKER. PATIENT ADVANCED DIRECTIVES PREFERENCE, IMMUNIZATIONS QUESTIONER, AND NECESSARY PAPERWORK COMPLETED. PATIENT REFUSED SKIN ASSESSMENT. PATIENT ORIENTATED TO ROOM, FLOOR, AND STAFF WITH ALL QUESTIONS ANSWERED. PATIENT EDUCATED ON THE USE OF THE CALL SHULTZ. PATIENT BED SIDE RAILS ARE UP X 2 FOR SAFETY. PATIENT BED IS LOCKED, LOW AND I WILL CONTINUE TO MONITOR THIS PATIENT Q 15 MIN WITH THE HELP OF STAFF TO MAINTAIN SAFETY.
[2018-11-22 20:00] VITALS: BP 124/74
[2018-11-22 20:05] VITALS: BP 124/74
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
[2018-11-22] MEDS ORDERED: OLANZAPINE 10 MG VIAL IM ONE (21:30)
[2018-11-22] MEDS: BLOOD SUGAR DIAGNOSTIC 1 EACH STRIP IN SCH (21:47)
--- NOTE | 2018-11-22 21:47 | NUR ---
GPS RN NOTE, PATIENT REFUSED ACCU CHECK. OFFERED ACCU CHECK THREE TIMES AND STILL PATIENT REFUSED STATING, " THE LORD WILL HAVE HIS WAY WITH YOU ". EDUCATED PATIENT ON THE RISKS AND BENEFITS OF HAVING ACCU CHECK PERFORMED AND REFUSING AN ACCU CHECK. WILL CONTINUE TO MONITOR THIS PATIENT.
[2018-11-22] MEDS ORDERED: ZOLPIDEM TARTRATE 5 MG TABLET PO SCH (22:00)
--- NOTE | 2018-11-22 23:41 | NUR ---
GPS RN NOTE, PATIENT SITTING IN OBSERVATION ROOM QUIT AND WILLING TO CONTRACT FOR SAFETY AT THIS TIME. WILL CONTINUE TO MONITOR THIS PATIENT.
[2018-11-22] MEDS: ZOLPIDEM TARTRATE 5 MG TABLET PO PRN (23:51)
--- NOTE | 2018-11-22 23:51 | NUR ---
GPS RN NOTE, PATIENT HAS A COMPLAINT OF NOT BEING ABLE TO SLEEP AND IS REQUESTING AMBIEN AT THIS TIME. PATIENT VITAL SIGNS ARE STABLE. GAVE AMBIEN 5MG PO HS PRN ORDERED. WILL REASSESS FOR INSOMNIA AND I WILL CONTINUE TO MONITOR THIS PATIENT.
[2018-11-23 07:13] LABS: ALBUMIN 3.4 g/dL (3.4-5.0); BILIRUBIN,TOTAL 0.4 mg/dL (0.2-1.0); POTASSIUM 3.9 mmol/L (3.5-5.1)
[2018-11-23 08:00] VITALS: BP 122/73
[2018-11-23] MEDS: BLOOD SUGAR DIAGNOSTIC 1 EACH STRIP IN SCH ×4 (08:58→22:00)
[2018-11-23] MEDS: FAMOTIDINE (20 MG) 20 MG TABLET PO SCH ×2 (08:59→17:39)
[2018-11-23] MEDS: DOCUSATE SODIUM 100 MG CAPSULE PO SCH ×2 (08:59→17:39)
[2018-11-23] MEDS: LIPASE/PROTEASE/AMYLASE 1 EACH CAPSULE.DR PO SCH ×3 (08:59→17:39)
--- NOTE | 2018-11-23 09:00 | NUR ---
RN NOTE PATIENT RECEIVED IN BED RESTING COMFORTABLY. AWAKE, ALERT AND ORIENTED. NO S/S OF PAIN OR DISTRESS. RESPIRATIONS ARE EVEN AND UNLABORED. SKIN IS WARM AND DRY TO TOUCH. SAFETY PRECAUTIONS IMPLEMENTED. BED IN LOW LOCKED POSITION. WILL CONTINUE TO MONITOR CLOSELY.
[2018-11-23] MEDS: LORAZEPAM 0.5 MG TABLET PO PRN ×2 (11:08→22:15)
[2018-11-23] MEDS: LamoTRIgine 100 MG TABLET PO SCH ×2 (12:35→21:07)
[2018-11-23 12:55] VITALS: BP 122/73
[2018-11-23 16:00] VITALS: BP 130/70
--- NOTE | 2018-11-23 16:06 | NUR ---
RN-CO: NO INCIDENT OF AGGRESSION, PATIENT IS CALMER AND MORE REDIRECTABLE. 1:1 DISCONTINUED.
[2018-11-23] MEDS: risperiDONE 1 MG TABLET PO SCH (17:39)
[2018-11-23 19:32] VITALS: BP 101/60
--- NOTE | 2018-11-23 22:16 | NUR ---
GPS RN NOTES: PT. REFUSED ACCU CHECK , ENCOURAGED STILL REFUSED , PER PT. I DON'T WANT BLOOD SUGAR CHECK ,MY BLOOD SUGAR IS FINE.
--- NOTE | 2018-11-23 22:20 | NUR ---
GPS RN NOTES: PT. REFUSED TO CHECK WEEKLY SKIN ASSESSMENT AND PICTURES TAKEN , ENCOURAGED STILL REFUSED , PER PT. MY SKIN IS OK , NOTHING HAPPEN TO MY SKIN.
[2018-11-24 08:00] VITALS: BP 124/66
[2018-11-24] MEDS: risperiDONE 1 MG TABLET PO SCH ×2 (08:33→16:17)
[2018-11-24] MEDS: FAMOTIDINE (20 MG) 20 MG TABLET PO SCH ×2 (08:33→16:17)
[2018-11-24] MEDS: LamoTRIgine 100 MG TABLET PO SCH ×2 (08:33→20:04)
[2018-11-24] MEDS: BLOOD SUGAR DIAGNOSTIC 1 EACH STRIP IN SCH (08:33)
[2018-11-24] MEDS: DOCUSATE SODIUM 100 MG CAPSULE PO SCH ×2 (08:33→16:16)
[2018-11-24] MEDS: LIPASE/PROTEASE/AMYLASE 1 EACH CAPSULE.DR PO SCH ×3 (08:42→17:02)
[2018-11-24] MEDS: BENZTROPINE MESYLATE (1 MG) 1 MG TABLET PO SCH ×2 (12:26→16:18)
--- NOTE | 2018-11-24 13:39 | NUR ---
RN NOTE: AM BS 77 MG/DL; NO COVERAGE NEEDED.
--- NOTE | 2018-11-24 15:31 | NUR ---
JANI contacted Urbano ([phone]), docent coordinator at [facility], and confirmed that the pt can return to their facility.
--- NOTE | 2018-11-24 15:37 | NUR ---
SW called pts , Helen ([phone]), and discussed the pts treatment plan and initial discharge plan. He stated that he does not feel as if the correction is not sufficient and stated that he would like to have the pt return to his home.
[2018-11-24 16:00] VITALS: BP 126/97
--- NOTE | 2018-11-24 16:19 | NUR ---
Initial Discharge Plan: Pt currently resides at [facility] located at [address] [place] [address]; ([phone]). Per pt, she would like to return to her home with her . SW will work with the pt and the MD regarding appropriate discharge planning. SW will form a safe and proper discharge.
[2018-11-24 19:48] VITALS: BP 106/57
[2018-11-24] MEDS: LORAZEPAM 0.5 MG TABLET PO PRN (22:50)
[2018-11-24 23:00] VITALS: BP 110/63
[2018-11-25 08:00] VITALS: BP 118/77
[2018-11-25] MEDS: risperiDONE 1 MG TABLET PO SCH ×2 (08:26→17:37)
[2018-11-25] MEDS: LIPASE/PROTEASE/AMYLASE 1 EACH CAPSULE.DR PO SCH ×3 (08:26→17:38)
[2018-11-25] MEDS: LamoTRIgine 100 MG TABLET PO SCH ×2 (08:26→21:08)
[2018-11-25] MEDS: FAMOTIDINE (20 MG) 20 MG TABLET PO SCH ×2 (08:26→17:38)
[2018-11-25] MEDS: DOCUSATE SODIUM 100 MG CAPSULE PO SCH ×2 (08:26→17:37)
[2018-11-25] MEDS: BENZTROPINE MESYLATE (1 MG) 1 MG TABLET PO SCH (08:27)
--- NOTE | 2018-11-25 15:37 | NUR ---
Group note: Pt attended a group session on 11/25/18 at 2PM discussing grief and loss and the impact it has had on their lives. S: Pt stated, �When I was at my previous place [facility] my went through some medical conditions and he almost . And I could not be there with him. I felt like that was a loss on my part.� O: Pt was present during the group session and was engaged. Pt appeared to be in a depressed mood and presented with a calm affect. Pt maintained appropriate eye contact and had an appropriate tone of voice. A: Pt expressed that not being able to be with her when he was going through a tough time really impacted her. Pt understood that being a meant that she needed to be a support for her and she is preoccupied with the idea that she could have lost her . P: Pt will continue milieu treatment and medication stabilization.
[2018-11-25 16:00] VITALS: BP 133/63
--- NOTE | 2018-11-25 18:42 | NUR ---
VERY PLEASANT,ACTIVE,MED COMPLIANT.
[2018-11-25 20:13] VITALS: BP 124/68
[2018-11-25] MEDS: ZOLPIDEM TARTRATE 5 MG TABLET PO PRN (21:46)
[2018-11-26 08:00] VITALS: BP 126/67
[2018-11-26] MEDS: DOCUSATE SODIUM 100 MG CAPSULE PO SCH ×2 (08:33→17:10)
[2018-11-26] MEDS: FAMOTIDINE (20 MG) 20 MG TABLET PO SCH ×2 (08:33→17:10)
[2018-11-26] MEDS: LIPASE/PROTEASE/AMYLASE 1 EACH CAPSULE.DR PO SCH ×3 (08:33→17:08)
[2018-11-26] MEDS: risperiDONE 1 MG TABLET PO SCH ×2 (08:34→17:10)
[2018-11-26] MEDS: LamoTRIgine 100 MG TABLET PO SCH ×2 (08:34→20:58)
[2018-11-26] MEDS ORDERED: BENZTROPINE MESYLATE (1 MG) 1 MG TABLET PO SCH (09:00)
[2018-11-26 16:11] VITALS: BP 115/59
--- NOTE | 2018-11-26 16:13 | NUR ---
PC Hearing Notification: JANI called SW the pts , Helen ([phone]), and informed him that the pt is going to have a hearing tomorrow around 4pm and explained what the hearing entails. JANI informed him that the psychiatrists plan is for the pt to return home by Saturday or Saturday next week.
--- NOTE | 2018-11-26 18:00 | NUR ---
UP AT NURSE'S STATION FREQ. WITH MULTIPLE REQUESTS.
[2018-11-26 20:43] VITALS: BP 127/91
[2018-11-26] MEDS: ZOLPIDEM TARTRATE 5 MG TABLET PO PRN (21:45)
[2018-11-27 08:00] VITALS: BP 121/67
[2018-11-27] MEDS: DOCUSATE SODIUM 100 MG CAPSULE PO SCH ×2 (08:37→16:30)
[2018-11-27] MEDS: FAMOTIDINE (20 MG) 20 MG TABLET PO SCH ×2 (08:37→16:31)
[2018-11-27] MEDS: LamoTRIgine 100 MG TABLET PO SCH ×2 (08:37→20:39)
[2018-11-27] MEDS: risperiDONE 1 MG TABLET PO SCH ×2 (08:37→16:30)
[2018-11-27] MEDS: LIPASE/PROTEASE/AMYLASE 1 EACH CAPSULE.DR PO SCH ×3 (08:38→16:30)
--- NOTE | 2018-11-27 12:32 | NUR ---
PC Hearing Notification: JANI called SW the pts , Helen ([phone]), and informed him that the hearing time got pushed up to around 1pm-1:30pm. He stated that he would no longer be able to make it.
--- NOTE | 2018-11-27 15:30 | NUR ---
GROUP NOTE: Pt was unable to attend group due to contesting her 5250 hold and wanting to attend her PC Hearing and was in attendance while group was being held.
[2018-11-27 16:00] VITALS: BP 120/77
[2018-11-27 20:00] VITALS: BP 106/62
[2018-11-27] MEDS: ZOLPIDEM TARTRATE 5 MG TABLET PO PRN (20:39)
[2018-11-28 08:00] VITALS: BP 114/76
[2018-11-28] MEDS: risperiDONE 1 MG TABLET PO SCH ×2 (09:37→22:24)
[2018-11-28] MEDS: FAMOTIDINE (20 MG) 20 MG TABLET PO SCH ×2 (09:37→17:16)
[2018-11-28] MEDS: LIPASE/PROTEASE/AMYLASE 1 EACH CAPSULE.DR PO SCH ×3 (09:37→17:14)
[2018-11-28] MEDS: LamoTRIgine 100 MG TABLET PO SCH ×2 (09:37→21:09)
[2018-11-28] MEDS: DOCUSATE SODIUM 100 MG CAPSULE PO SCH ×2 (09:38→17:14)
--- NOTE | 2018-11-28 14:12 | NUR ---
Group note: Pt attended a group session on 11/28/18 at 1:30PM discussing their support system while they are in the hospital and after they are discharged. S: Pt stated, �My support system is my , sisters and friends. They are very helpful because they know they signs of my sickness and when they notice that I am starting to become manic, they help me call my doctor right away.� O: Pt was present during the group session and was engaged. Pt appeared to be in a depressed mood and presented with a calm affect. Pt maintained appropriate eye contact and had an appropriate tone of voice. A: Pt expressed that she feels immense gratitude for her support system. Pt. understands the value of having people available for support and also states that she is open with her illness because it is helpful when people are informed of her symptoms and unhelpful behaviors. P: Pt will continue milieu treatment and medication stabilization.
[2018-11-28 16:00] VITALS: BP 100/63
[2018-11-28 20:00] VITALS: BP 124/59
[2018-11-28 20:29] VITALS: BP 101/59
[2018-11-29 08:00] VITALS: BP 115/71
[2018-11-29] MEDS: LamoTRIgine 100 MG TABLET PO SCH ×2 (08:12→21:28)
[2018-11-29] MEDS: DOCUSATE SODIUM 100 MG CAPSULE PO SCH ×2 (08:12→17:55)
[2018-11-29] MEDS: LIPASE/PROTEASE/AMYLASE 1 EACH CAPSULE.DR PO SCH ×3 (08:12→17:54)
[2018-11-29] MEDS: FAMOTIDINE (20 MG) 20 MG TABLET PO SCH ×2 (08:13→17:54)
[2018-11-29 16:19] VITALS: BP 107/57
[2018-11-29 20:00] VITALS: BP 113/56
[2018-11-29] MEDS: risperiDONE 1 MG TABLET PO SCH (21:28)
[2018-11-29] MEDS: ZOLPIDEM TARTRATE 5 MG TABLET PO PRN (22:13)
[2018-11-30 08:00] VITALS: BP 116/60
[2018-11-30] MEDS: LamoTRIgine 100 MG TABLET PO SCH ×2 (08:35→20:43)
[2018-11-30] MEDS: FAMOTIDINE (20 MG) 20 MG TABLET PO SCH ×2 (08:35→18:16)
[2018-11-30] MEDS: LIPASE/PROTEASE/AMYLASE 1 EACH CAPSULE.DR PO SCH ×3 (08:35→18:16)
[2018-11-30] MEDS: DOCUSATE SODIUM 100 MG CAPSULE PO SCH ×2 (08:35→18:16)
[2018-11-30] MEDS: LORAZEPAM 0.5 MG TABLET PO PRN (09:31)
[2018-11-30 16:09] VITALS: BP 137/70
--- NOTE | 2018-11-30 19:17 | NUR ---
GPS/RN OPENING NOTES RECEIVED PATIENT SITTING IN CHAIR ON THE PHONE AND ABLE TO VERBALIZE NEEDS WITH BIBLE. RESPIRATIONS EVEN AND UNLABORED, SKIN WARM TO TOUCH, ABLE TO VERBALIZE NEEDS, SKIN WARM TO TOUCH, NO S/S OF BEHAVIOR MANIFESTED AT THIS TIME, WILL CONTINUE TO MONITOR AT THIS TIME. RECEIVED ENDORSEMENT FROM AM RN FOR KHADIJAH.
[2018-11-30 19:54] VITALS: BP 119/70
[2018-11-30 20:15] VITALS: BP 119/70
[2018-11-30] MEDS: risperiDONE 1 MG TABLET PO SCH (21:20)
[2018-11-30] MEDS: ZOLPIDEM TARTRATE 5 MG TABLET PO PRN (22:09)
--- NOTE | 2018-11-30 22:10 | NUR ---
GPS/RN NOTES MEDICATION AMBIEN 5 MG PO REQUESTED FOR SLEEP, WILL MONITOR.
[2018-12-01 08:00] VITALS: BP 134/89
[2018-12-01] MEDS: DOCUSATE SODIUM 100 MG CAPSULE PO SCH ×2 (08:26→17:11)
[2018-12-01] MEDS: FAMOTIDINE (20 MG) 20 MG TABLET PO SCH ×2 (08:26→17:11)
[2018-12-01] MEDS: LIPASE/PROTEASE/AMYLASE 1 EACH CAPSULE.DR PO SCH ×3 (08:26→17:11)
[2018-12-01] MEDS: LamoTRIgine 100 MG TABLET PO SCH ×2 (08:26→21:13)
--- NOTE | 2018-12-01 10:42 | NUR ---
SW called pts , Helen ([phone]), and left him a voicemail regarding discharge day and time for pt.
--- NOTE | 2018-12-01 10:49 | NUR ---
JANI spoke with pts , Helen ([phone]), and he confirmed that he will be picking pt up on Saturday12/03/18 at 12:00pm.
--- NOTE | 2018-12-01 15:59 | NUR ---
Group note: Pt attended a group session on 12/01/18 at 2:30PM discussing their personal strengths and coping skills while they are in the hospital and after they are discharged. S: Pt stated, �I think that my strength is my spirituality. I also have a lot of hope of getting better as long as I take my medications and listen to my doctor, I know I will get better.� O: Pt was present during the group session and was engaged. Pt appeared to be in a depressed mood and presented with a calm affect. Pt maintained appropriate eye contact and had an appropriate tone of voice. A: Pt expressed understanding of her illness and the importance of complying with treatment. Pt has a positive outlook for her future and continues to contribute to the group in a positive way. P: Pt will continue milieu treatment and medication stabilization.
[2018-12-01 16:00] VITALS: BP 106/59
[2018-12-01 20:00] VITALS: BP 126/73
[2018-12-01 20:01] VITALS: BP 126/73
[2018-12-01] MEDS: risperiDONE 1 MG TABLET PO SCH (21:13)
[2018-12-01] MEDS: ZOLPIDEM TARTRATE 5 MG TABLET PO PRN (22:14)
--- NOTE | 2018-12-01 22:14 | NUR ---
RN GPS NOTES PATIENT REQUESTED FOR SLEEP AIDE, OSVALDO REQUESTED . PRN AMBIEN OFFERED AND GIVEN ORDERED WILL CONTINUE TO MONITOR FOR EFFECTIVENESS.
[2018-12-02 08:00] VITALS: BP 100/83
[2018-12-02] MEDS: FAMOTIDINE (20 MG) 20 MG TABLET PO SCH ×2 (09:20→17:21)
[2018-12-02] MEDS: LamoTRIgine 100 MG TABLET PO SCH ×2 (09:20→21:05)
[2018-12-02] MEDS: DOCUSATE SODIUM 100 MG CAPSULE PO SCH ×2 (09:20→17:21)
[2018-12-02] MEDS: LIPASE/PROTEASE/AMYLASE 1 EACH CAPSULE.DR PO SCH ×3 (09:21→17:21)
--- NOTE | 2018-12-02 15:41 | NUR ---
Group note: Pt attended a group session on 12/02/18 at 2:00PM discussing goal setting for while they are in the hospital and for after being discharged. S: Pt stated, �I am being discharged tomorrow and my goal is to continue taking my medication and stick to treatment. I haven�t been so good at doing that in the past, but my goal is to stick to it this time. I also plan on joining a therapeutic support group at [facility] because they can help me stay on track.� O: Pt was present during the group session and was engaged. Pt appeared to be in a euthymic mood and presented with a calm affect. Pt maintained appropriate eye contact and had an appropriate tone of voice. A: Pt expressed an understanding of the importance of complying with her medication after discharge and setting realistic goals to help her achieve wellness. Pt has gained awareness of her mental illness and expressed strong feelings of wanting to comply with treatment. P: Pt will continue milieu treatment and medication stabilization.
[2018-12-02 16:00] VITALS: BP 124/72
--- NOTE | 2018-12-02 18:41 | NUR ---
TALKING ABOUT GOING HOME TOMORROW.
[2018-12-02 20:26] VITALS: BP 100/65
[2018-12-02] MEDS: risperiDONE 1 MG TABLET PO SCH (21:50)
[2018-12-03 08:00] VITALS: BP 137/71
[2018-12-03] MEDS: LIPASE/PROTEASE/AMYLASE 1 EACH CAPSULE.DR PO SCH (08:07)
[2018-12-03] MEDS: DOCUSATE SODIUM 100 MG CAPSULE PO SCH (08:22)
[2018-12-03] MEDS: LamoTRIgine 100 MG TABLET PO SCH (08:22)
[2018-12-03] MEDS: FAMOTIDINE (20 MG) 20 MG TABLET PO SCH (08:22)
--- NOTE | 2018-12-03 11:22 | NUR ---
DISCHARGE NOTE: Pt will be discharging at 12:00pm via private vehicle home [address] [place] [address]. Pts , Helen [phone] will be picking pt up and transporting home. Pts mood is euthymic with congruent affect. Pt denied visual/auditory hallucinations and denied suicidal/homicidal ideation. Pt will follow up with Psychiatrist: Dr. Chucky Mccall Address: [address] [place] [address] on Saturday December 08, 2018 at 1:00pm. SW faxed clinical information to . SW will also follow up with Trailer Steerer: Dr. Nataliia Anderson Address: [facility] [address], [place] [address] . The multidisciplinary exit care form was done, printed, signed, and given to the patient.
--- NOTE | 2018-12-03 12:20 | NUR ---
GPS/RN-NOTES PATIENT DISCHARGE TO HOME TODAY. AND DR. FARRELL AWARE AND AGREED WITH DISCHARGE WITH ORDERS.PATIENT DID NOT VERBALIZE SI/HI,DENIES VISUAL/AUDITORY HALLUCINATIONS AT THE TIME OF DISCHARGE. ALL DISCHARGE MEDICATIONS WAS REVIEWED WITH UNDERSTANDING. RX WAS GIVEN TO PATIENT AND WAS ENDORSE TO [facility] ( ).ALL DISCHARGE PAPERS WAS SIGN BY THE PATIENT INCLUDING BELONGING LIST. INSTRUCTED PATIENT TO FOLLOW UP WITH PRIMARY PHYSICIAN AND PSYCHIATRIST IN A WEEK AND CALL 911 OR GO TO THE NEAREST EMERGENCY FACILITY [facility]. PATIENT WAS HOST COORDINATOR BY CARLIE VIA PRIVATE CAR. PATIENT LEFT THE UNIT IN STABLE CONDITION ALERT ORIENTED X3 AMBULATORY WITH STEADY GAIT.ASSISTED BY ONE WANT AD RECEIVER STAFF IN THE LOBBY FOR SAFETY,SHE LEFT WITH ALL BELONGINGS.
== END 2018-12-03 12:20 | disposition home or self-care (01) | DRG 885 ==
LOC: ER 15:09 → GPS 16:33
PROVIDERS: ADMIT Psychiatry & Neurology Psychiatry; ATTEND Student in an Organized Health Care Education/Training Program
DX: F25.0 Schizoaffective disorder, bipolar type (principal); R45.851 Suicidal ideations; E11.9 Type 2 diabetes mellitus without complications; K21.9 Gastro-esophageal reflux disease without esophagitis; Z96.651 Presence of right artificial knee joint; Z79.899 Other long term (current) drug therapy; F32.9 Major depressive disorder, single episode, unspecified
CPT/HCPCS: 36415; 80048-TC; 80053-TC; 80061-TC; 80076-TC; 80305; 81000-TC; 82962-TC; 85025-TC; 87081-TC; G0480; J1815; J3490

== ENCOUNTER 2023-01-02 19:45 | Inpatient (IN) | payer MEDICARE, BC ==
[~2023-01-02] VITALS: Ht 167.6 cm; Wt 77.1 kg
[~2023-01-02 19:45] MED LIST changes: +ACET-2605 PO; +ACET-868 PO; +ARIP20TA4 PO; +ARIP5TAB10 PO; +BENZ0.5T43 PO; +DOCU-141 PO; +FAMO-131 PO; +LAMO200T2 PO; +LIPA1CAP36 PO; +MAG30ORA PO; -NITR100C6 PO; +OLAN2.5T3 PO; +ZOLP5TAB2 PO
[2023-01-02 21:02] LABS: BASOPHILS % (AUTO) 0.5 % (0.0-2.0); HEMATOCRIT 37 % (33-45); HEMOGLOBIN 12.2 g/dL (11.5-14.8); LYMPHOCYTES # (AUTO) 1.9 K/uL (0.8-4.8); MEAN CORPUSCULAR HEMOGLOBIN 31 PG (26.0-33.0); MEAN CORPUSCULAR HGB CONC 33 g/dl (31.0-36.0); MEAN CORPUSCULAR VOLUME 94 fL (82-100); MONOCYTES # (AUTO) 0.5 K/uL (0.1-1.30); MONOCYTES % (AUTO) 8.7 % (2.0-12.0); NEUTROPHILS # (AUTO) 3.1 K/uL (1.8-8.9); NEUTROPHILS % (AUTO) 55.8 % (43.0-81.0); PLATELET COUNT (AUTO) 199 K/uL (150-450); RED BLOOD CELL COUNT(AUTO) 3.93 MIL/uL (4.0-5.2); RED CELL DISTRIBUTION WIDTH 14.3 % (11.5-15.0); WHITE BLOOD COUNT (AUTO) 5.5 K/uL (4.3-11.0)
[2023-01-02 21:29] LABS: APPEARANCE,URINE CLEAR (CLEAR); BILIRUBIN,URINE NEGATIVE (NEGATIVE); BLOOD, URINE NEGATIVE Ery/uL (NEGATIVE); COLOR,URINE YELLOW (YELLOW); KETONES,URINE NEGATIVE (NEGATIVE); LEUKOCYTE ESTERASE ,URINE NEGATIVE (NEGATIVE); NITRITE, URINE NEGATIVE (NEGATIVE); PROTEIN,URINE NEGATIVE (NEGATIVE); UGLUCOSE NEGATIVE (NEGATIVE); UROBILINOGEN,URINE 0.2 EU/dL (0.2)
[2023-01-02 21:36] LABS: ALANINE AMINOTRANSFERASE 26 U/L (12-78); ALBUMIN 3.9 g/dL (3.4-5.0); ALCOHOL, BLOOD < 3 mg/dL (0-10); ALKALINE PHOSPHATASE 102 U/L (46-116); ASPARTATE AMINOTRANSFERASE 23 U/L (15-37); BILIRUBIN,DIRECT 0.1 mg/dL (0.0-0.2); BILIRUBIN,TOTAL 0.3 mg/dL (0.2-1.0); CALCIUM, SERUM 9.7 mg/dL (8.5-10.1); CARBON DIOXIDE 27 mmol/L (21-32); CHLORIDE 106 mmol/L (98-107); CREATININE 0.8 mg/dL (0.6-1.3); GLUCOSE 97 mg/dL (74-106); SODIUM SERUM 142 mmol/L (136-145); TOTAL PROTEIN, SERUM 6.8 g/dL (6.4-8.2); UREA NITROGEN, BLOOD 10 mg/dL (7-18)
[2023-01-02 21:44] LABS: ACETAMINOPHEN <10 ug/ml (10-30); SALICYLATE < 2.3 mg/dL (2.8-20.0)
[2023-01-02 21:57] LABS: AMPHETAMINE, URINE NEGATIVE (NEGATIVE); BARBITURATE, URINE NEGATIVE (NEGATIVE); BENZODIAZEPINE, URINE NEGATIVE (NEGATIVE); CANNABINOID, URINE NEGATIVE (NEGATIVE); COCCAINE, URINE NEGATIVE (NEGATIVE); OPIATE, URINE NEGATIVE (NEGATIVE); PHENCYCLIDINE SCREEN,URINE NEGATIVE (NEGATIVE)
[2023-01-03 02:20] VITALS: BP 141/77; TEMP 98.1; O2SAT 99
[2023-01-03] MEDS ORDERED: Z GUARD REMEDY 4 OZ OINT TP PRN (03:00)
[2023-01-03 08:00] VITALS: BP 151/87; TEMP 97.8; O2SAT 96
[2023-01-03] MEDS: risperiDONE 1 MG TABLET PO SCH ×2 (13:19→16:14)
[2023-01-03] MEDS: LamoTRIgine 25 MG TABLET PO SCH (13:19)
[2023-01-03 16:00] VITALS: BP 125/71; TEMP 97.8; O2SAT 99
[2023-01-03] MEDS ORDERED: omeprazole (17:42)
[2023-01-03 20:00] VITALS: BP 137/82; TEMP 98.1; O2SAT 98
[2023-01-03] MEDS: CLOZAPINE 25 MG TABLET PO SCH (22:02)
[2023-01-03] MEDS: NYSTATIN TOP POWDER 15 GM BOTTLE TP SCH (23:00)
[2023-01-04 08:00] VITALS: BP 157/88; TEMP 97.8; O2SAT 97
[2023-01-04] MEDS: risperiDONE 1 MG TABLET PO SCH ×3 (08:22→17:49)
[2023-01-04] MEDS: DOCUSATE SODIUM 100 MG CAPSULE PO SCH (08:58)
[2023-01-04] MEDS: NYSTATIN TOP POWDER 15 GM BOTTLE TP SCH ×2 (09:11→17:50)
[2023-01-04] MEDS ORDERED: ONDANSETRON HCL 4 MG/5 ML SOLUTION PO PRN (11:00)
[2023-01-04] MEDS: ONDANSETRON 4 MG TAB.RAPDIS PO PRN (12:22)
[2023-01-04] MEDS: AMLODIPINE BESYLATE 5 MG TABLET PO SCH (12:22)
[2023-01-04] MEDS: LamoTRIgine 25 MG TABLET PO SCH ×2 (13:18→21:02)
[2023-01-04 16:00] VITALS: BP 116/76; TEMP 97.8; O2SAT 96
[2023-01-04 20:00] VITALS: BP 135/74; TEMP 98.3; O2SAT 98
[2023-01-04] MEDS: CLOZAPINE 25 MG TABLET PO SCH (21:01)
[2023-01-05] MEDS: PANTOPRAZOLE 40 MG TABLET.DR PO SCH (07:31)
[2023-01-05 08:00] VITALS: BP 134/83; TEMP 97.8; O2SAT 95
[2023-01-05] MEDS: DOCUSATE SODIUM 100 MG CAPSULE PO SCH (09:10)
[2023-01-05] MEDS: risperiDONE 1 MG TABLET PO SCH ×3 (09:10→17:05)
[2023-01-05] MEDS: AMLODIPINE BESYLATE 5 MG TABLET PO SCH (09:14)
[2023-01-05] MEDS: NYSTATIN TOP POWDER 15 GM BOTTLE TP SCH ×2 (09:14→17:05)
[2023-01-05] MEDS: ONDANSETRON 4 MG TAB.RAPDIS PO PRN (09:20)
[2023-01-05] MEDS ORDERED: BUPR150T10 PO (13:13)
[2023-01-05] MEDS ORDERED: ARIP10TA9 PO (13:13)
[2023-01-05] MEDS ORDERED: ZOLP10TA2 PO (13:13)
[2023-01-05] MEDS ORDERED: CLOZ25TA4 PO (13:16)
[2023-01-05] MEDS ORDERED: RISP3TAB5 PO (13:16)
[2023-01-05] MEDS: LamoTRIgine 25 MG TABLET PO SCH ×2 (13:34→21:26)
[2023-01-05 16:00] VITALS: BP 130/74; TEMP 97.8; O2SAT 96
[2023-01-05] MEDS: BENZTROPINE MESYLATE (1 MG) 1 MG TABLET PO SCH (17:05)
[2023-01-05] MEDS: CLOZAPINE 25 MG TABLET PO SCH (21:27)
[2023-01-05 21:39] VITALS: BP 139/80; TEMP 97.5; O2SAT 99
[2023-01-06] MEDS: TEMAZEPAM 7.5 MG CAPSULE PO PRN (01:00)
[2023-01-06] MEDS: PANTOPRAZOLE 40 MG TABLET.DR PO SCH (07:59)
[2023-01-06 08:00] VITALS: BP 145/83; TEMP 97.8; O2SAT 98
[2023-01-06] MEDS: BENZTROPINE MESYLATE (1 MG) 1 MG TABLET PO SCH ×2 (08:05→17:31)
[2023-01-06] MEDS: DOCUSATE SODIUM 100 MG CAPSULE PO SCH (08:06)
[2023-01-06] MEDS: AMLODIPINE BESYLATE 5 MG TABLET PO SCH (08:09)
[2023-01-06] MEDS: risperiDONE 1 MG TABLET PO SCH ×3 (08:09→17:31)
[2023-01-06] MEDS: NYSTATIN TOP POWDER 15 GM BOTTLE TP SCH ×2 (08:10→17:31)
[2023-01-06] MEDS: LORAZEPAM 0.5 MG TABLET PO PRN (12:03)
[2023-01-06] MEDS: LamoTRIgine 25 MG TABLET PO SCH ×3 (12:03→22:00)
[2023-01-06 16:00] VITALS: BP 137/80; TEMP 97.8; O2SAT 97
[2023-01-06 20:24] VITALS: BP 147/72; TEMP 97.6; O2SAT 97
[2023-01-06] MEDS: CLOZAPINE 25 MG TABLET PO SCH ×2 (21:38→22:00)
[2023-01-07 08:00] VITALS: BP 127/72; TEMP 98.1; O2SAT 97
[2023-01-07] MEDS: risperiDONE 1 MG TABLET PO SCH ×3 (08:29→17:48)
[2023-01-07] MEDS: PANTOPRAZOLE 40 MG TABLET.DR PO SCH (08:29)
[2023-01-07] MEDS: DOCUSATE SODIUM 100 MG CAPSULE PO SCH (08:29)
[2023-01-07] MEDS: BENZTROPINE MESYLATE (1 MG) 1 MG TABLET PO SCH ×2 (08:30→17:48)
[2023-01-07] MEDS: NYSTATIN TOP POWDER 15 GM BOTTLE TP SCH ×2 (08:31→16:27)
[2023-01-07] MEDS: AMLODIPINE BESYLATE 5 MG TABLET PO SCH (08:31)
[2023-01-07] MEDS: LamoTRIgine 100 MG TABLET PO SCH ×2 (13:14→21:05)
[2023-01-07 16:00] VITALS: BP 133/75; TEMP 98.8; O2SAT 96
[2023-01-07 20:32] VITALS: BP 129/83; TEMP 98; O2SAT 97
[2023-01-07] MEDS: CLOZAPINE 25 MG TABLET PO SCH (21:05)
[2023-01-08] MEDS: LORAZEPAM 0.5 MG TABLET PO PRN (03:24)
[2023-01-08 08:00] VITALS: BP_SYST 128; BP_SYST 139; BP_DIAS 57; BP_DIAS 59; TEMP 98.1; O2SAT 93; O2SAT 99
[2023-01-08] MEDS: PANTOPRAZOLE 40 MG TABLET.DR PO SCH (08:34)
[2023-01-08] MEDS: BENZTROPINE MESYLATE (1 MG) 1 MG TABLET PO SCH ×2 (08:34→16:31)
[2023-01-08] MEDS: risperiDONE 1 MG TABLET PO SCH ×3 (08:35→16:31)
[2023-01-08] MEDS: DOCUSATE SODIUM 100 MG CAPSULE PO SCH (08:35)
[2023-01-08] MEDS: AMLODIPINE BESYLATE 5 MG TABLET PO SCH (08:35)
[2023-01-08] MEDS: NYSTATIN TOP POWDER 15 GM BOTTLE TP SCH ×2 (08:36→16:31)
[2023-01-08] MEDS: LamoTRIgine 100 MG TABLET PO SCH ×2 (12:42→21:07)
[2023-01-08] MEDS: LITHIUM CARBONATE 150 MG CAPSULE PO SCH ×2 (12:43→16:31)
[2023-01-08 16:00] VITALS: BP 139/78; TEMP 98.1; O2SAT 92
[2023-01-08 20:00] VITALS: BP 124/79; TEMP 98; O2SAT 97
[2023-01-08] MEDS: CLOZAPINE 25 MG TABLET PO SCH (21:07)
[2023-01-08] MEDS: TEMAZEPAM 7.5 MG CAPSULE PO PRN (22:27)
[2023-01-09 08:00] VITALS: BP 126/77; TEMP 97.6; O2SAT 98
[2023-01-09] MEDS: LITHIUM CARBONATE 150 MG CAPSULE PO SCH ×3 (08:45→17:54)
[2023-01-09] MEDS: DOCUSATE SODIUM 100 MG CAPSULE PO SCH (08:46)
[2023-01-09] MEDS: PANTOPRAZOLE 40 MG TABLET.DR PO SCH (08:46)
[2023-01-09] MEDS: BENZTROPINE MESYLATE (1 MG) 1 MG TABLET PO SCH ×3 (08:46→17:53)
[2023-01-09] MEDS: risperiDONE 1 MG TABLET PO SCH ×3 (08:46→17:54)
[2023-01-09] MEDS: NYSTATIN TOP POWDER 15 GM BOTTLE TP SCH ×2 (08:48→17:55)
[2023-01-09] MEDS: AMLODIPINE BESYLATE 5 MG TABLET PO SCH (08:53)
[2023-01-09] MEDS: LamoTRIgine 100 MG TABLET PO SCH ×2 (13:29→21:23)
[2023-01-09 16:00] VITALS: BP 138/72; TEMP 97.6; O2SAT 99
[2023-01-09 20:00] VITALS: BP 125/73; TEMP 97.6; O2SAT 97
[2023-01-09 20:59] VITALS: BP 125/73; TEMP 97.6; O2SAT 97
[2023-01-09] MEDS: CLOZAPINE 25 MG TABLET PO SCH (21:23)
[2023-01-10 08:00] VITALS: BP 110/76; TEMP 97.7; O2SAT 96
[2023-01-10] MEDS: PANTOPRAZOLE 40 MG TABLET.DR PO SCH (08:13)
[2023-01-10] MEDS: LITHIUM CARBONATE 150 MG CAPSULE PO SCH ×3 (08:13→16:07)
[2023-01-10] MEDS: BENZTROPINE MESYLATE (1 MG) 1 MG TABLET PO SCH ×3 (08:13→16:07)
[2023-01-10] MEDS: risperiDONE 1 MG TABLET PO SCH ×3 (08:13→16:07)
[2023-01-10] MEDS: AMLODIPINE BESYLATE 5 MG TABLET PO SCH (08:13)
[2023-01-10] MEDS: DOCUSATE SODIUM 100 MG CAPSULE PO SCH (08:13)
[2023-01-10] MEDS: NYSTATIN TOP POWDER 15 GM BOTTLE TP SCH ×2 (08:14→16:06)
[2023-01-10] MEDS: LamoTRIgine 100 MG TABLET PO SCH ×2 (12:22→21:10)
[2023-01-10 16:00] VITALS: BP 121/73; TEMP 97.9; O2SAT 95
[2023-01-10] MEDS: CLOZAPINE 25 MG TABLET PO SCH (21:10)
[2023-01-11 08:00] VITALS: BP 124/62; TEMP 98; O2SAT 98
[2023-01-11] MEDS: DOCUSATE SODIUM 100 MG CAPSULE PO SCH (08:10)
[2023-01-11] MEDS: LITHIUM CARBONATE 150 MG CAPSULE PO SCH ×3 (08:10→16:19)
[2023-01-11] MEDS: BENZTROPINE MESYLATE (1 MG) 1 MG TABLET PO SCH ×2 (08:10→12:27)
[2023-01-11] MEDS: PANTOPRAZOLE 40 MG TABLET.DR PO SCH (08:10)
[2023-01-11] MEDS: risperiDONE 1 MG TABLET PO SCH ×3 (08:10→16:20)
[2023-01-11] MEDS: AMLODIPINE BESYLATE 5 MG TABLET PO SCH (08:11)
[2023-01-11] MEDS: NYSTATIN TOP POWDER 15 GM BOTTLE TP SCH ×2 (08:12→16:18)
[2023-01-11] MEDS: LamoTRIgine 100 MG TABLET PO SCH ×2 (12:27→21:19)
[2023-01-11 16:00] VITALS: BP 99/59; TEMP 98; O2SAT 98
[2023-01-11 20:00] VITALS: BP 131/69; TEMP 98.4; O2SAT 97
[2023-01-11] MEDS: CLOZAPINE 25 MG TABLET PO SCH (21:19)
[2023-01-12 07:45] LABS: VALPROIC ACID < 3 ug/mL (50-100)
[2023-01-12 07:47] LABS: ALANINE AMINOTRANSFERASE 22 U/L (12-78); ALBUMIN 3.4 g/dL (3.4-5.0); ALKALINE PHOSPHATASE 71 U/L (46-116); ASPARTATE AMINOTRANSFERASE 17 U/L (15-37); BILIRUBIN,TOTAL 0.5 mg/dL (0.2-1.0); CALCIUM, SERUM 9.7 mg/dL (8.5-10.1); CARBON DIOXIDE 28 mmol/L (21-32); CHLORIDE 109 mmol/L (98-107); CREATININE 0.9 mg/dL (0.6-1.3); GLUCOSE 82 mg/dL (74-106); POTASSIUM 4.3 mmol/L (3.5-5.1); SODIUM SERUM 144 mmol/L (136-145); UREA NITROGEN, BLOOD 15 mg/dL (7-18)
[2023-01-12 07:51] LABS: BASOPHILS % (AUTO) 0.7 % (0.0-2.0); HEMATOCRIT 35 % (33-45); HEMOGLOBIN 11.3 g/dL (11.5-14.8); LYMPHOCYTES # (AUTO) 1.7 K/uL (0.8-4.8); LYMPHOCYTES % (AUTO) 31.6 % (20.0-44.0); MEAN CORPUSCULAR HEMOGLOBIN 31 PG (26.0-33.0); MEAN CORPUSCULAR HGB CONC 33 g/dl (31.0-36.0); MEAN CORPUSCULAR VOLUME 95 fL (82-100); MONOCYTES # (AUTO) 0.6 K/uL (0.1-1.30); MONOCYTES % (AUTO) 10.7 % (2.0-12.0); NEUTROPHILS # (AUTO) 3.1 K/uL (1.8-8.9); PLATELET COUNT (AUTO) 187 K/uL (150-450); RED BLOOD CELL COUNT(AUTO) 3.65 MIL/uL (4.0-5.2); RED CELL DISTRIBUTION WIDTH 14.5 % (11.5-15.0); WHITE BLOOD COUNT (AUTO) 5.4 K/uL (4.3-11.0)
[2023-01-12 08:00] VITALS: BP 133/74; TEMP 98.5; O2SAT 95
[2023-01-12] MEDS: AMLODIPINE BESYLATE 5 MG TABLET PO SCH (08:05)
[2023-01-12] MEDS: PANTOPRAZOLE 40 MG TABLET.DR PO SCH (08:05)
[2023-01-12] MEDS: LITHIUM CARBONATE 150 MG CAPSULE PO SCH ×3 (08:05→16:58)
[2023-01-12] MEDS: DOCUSATE SODIUM 100 MG CAPSULE PO SCH (08:05)
[2023-01-12] MEDS: risperiDONE 1 MG TABLET PO SCH ×3 (08:05→16:58)
[2023-01-12] MEDS: NYSTATIN TOP POWDER 15 GM BOTTLE TP SCH ×2 (08:06→16:59)
[2023-01-12] MEDS: LamoTRIgine 100 MG TABLET PO SCH ×2 (12:04→21:52)
[2023-01-12 16:00] VITALS: BP 116/63; TEMP 98.8; O2SAT 94
[2023-01-12 20:00] VITALS: BP 123/70; TEMP 98.5; O2SAT 96
[2023-01-12] MEDS: CLOZAPINE 25 MG TABLET PO SCH (21:52)
[2023-01-13 08:00] VITALS: BP 125/64; TEMP 97.8; O2SAT 96
[2023-01-13] MEDS: PANTOPRAZOLE 40 MG TABLET.DR PO SCH (08:56)
[2023-01-13] MEDS: DOCUSATE SODIUM 100 MG CAPSULE PO SCH (08:56)
[2023-01-13] MEDS: LITHIUM CARBONATE 150 MG CAPSULE PO SCH ×3 (08:56→16:46)
[2023-01-13] MEDS: risperiDONE 1 MG TABLET PO SCH ×3 (08:56→16:46)
[2023-01-13] MEDS: NYSTATIN TOP POWDER 15 GM BOTTLE TP SCH ×2 (08:57→16:46)
[2023-01-13] MEDS: AMLODIPINE BESYLATE 5 MG TABLET PO SCH (09:41)
[2023-01-13] MEDS: LamoTRIgine 100 MG TABLET PO SCH ×2 (12:12→21:41)
[2023-01-13 16:00] VITALS: BP 114/63; TEMP 97.8; O2SAT 97
[2023-01-13 20:00] VITALS: BP 151/81; TEMP 98.4; O2SAT 95
[2023-01-13] MEDS: CLOZAPINE 25 MG TABLET PO SCH (21:41)
[2023-01-14 08:00] VITALS: BP 131/65; TEMP 98.6; O2SAT 98
[2023-01-14] MEDS: PANTOPRAZOLE 40 MG TABLET.DR PO SCH (08:24)
[2023-01-14] MEDS: LITHIUM CARBONATE 150 MG CAPSULE PO SCH ×3 (08:24→16:17)
[2023-01-14] MEDS: risperiDONE 1 MG TABLET PO SCH ×3 (08:24→16:17)
[2023-01-14] MEDS: AMLODIPINE BESYLATE 5 MG TABLET PO SCH (08:24)
[2023-01-14] MEDS: DOCUSATE SODIUM 100 MG CAPSULE PO SCH (08:24)
[2023-01-14] MEDS: NYSTATIN TOP POWDER 15 GM BOTTLE TP SCH ×2 (09:27→16:39)
[2023-01-14] MEDS: LamoTRIgine 100 MG TABLET PO SCH ×2 (12:30→21:20)
[2023-01-14 16:00] VITALS: BP 120/74; TEMP 98.6; O2SAT 99
[2023-01-14 20:45] VITALS: BP 104/60; TEMP 97.5; O2SAT 98
[2023-01-14] MEDS: CLOZAPINE 25 MG TABLET PO SCH (21:20)
[2023-01-15 08:00] VITALS: BP 102/59; TEMP 97.7; O2SAT 99
[2023-01-15] MEDS: LITHIUM CARBONATE 150 MG CAPSULE PO SCH ×3 (08:14→16:43)
[2023-01-15] MEDS: PANTOPRAZOLE 40 MG TABLET.DR PO SCH (08:14)
[2023-01-15] MEDS: risperiDONE 1 MG TABLET PO SCH ×3 (08:14→16:43)
[2023-01-15] MEDS: DOCUSATE SODIUM 100 MG CAPSULE PO SCH (08:14)
[2023-01-15] MEDS: AMLODIPINE BESYLATE 5 MG TABLET PO SCH (08:14)
[2023-01-15] MEDS: NYSTATIN TOP POWDER 15 GM BOTTLE TP SCH ×2 (08:15→16:46)
[2023-01-15] MEDS: LamoTRIgine 100 MG TABLET PO SCH ×2 (12:21→21:03)
[2023-01-15 16:00] VITALS: BP 118/72; TEMP 98.7; O2SAT 97
[2023-01-15 21:02] VITALS: BP 99/67; TEMP 97.9; O2SAT 100
[2023-01-15] MEDS: CLOZAPINE 25 MG TABLET PO SCH (21:02)
[2023-01-16 08:00] VITALS: BP 141/63; TEMP 98; O2SAT 99
[2023-01-16] MEDS: PANTOPRAZOLE 40 MG TABLET.DR PO SCH (08:08)
[2023-01-16] MEDS: LITHIUM CARBONATE 150 MG CAPSULE PO SCH ×3 (08:08→16:48)
[2023-01-16] MEDS: risperiDONE 1 MG TABLET PO SCH ×3 (09:12→16:48)
[2023-01-16] MEDS: DOCUSATE SODIUM 100 MG CAPSULE PO SCH (09:12)
[2023-01-16] MEDS: AMLODIPINE BESYLATE 5 MG TABLET PO SCH (09:13)
[2023-01-16] MEDS: NYSTATIN TOP POWDER 15 GM BOTTLE TP SCH ×2 (09:14→16:48)
[2023-01-16] MEDS: LamoTRIgine 100 MG TABLET PO SCH ×2 (12:24→21:12)
[2023-01-16 20:05] VITALS: BP 157/77; TEMP 97.6; O2SAT 96
[2023-01-16 20:08] VITALS: BP 121/68; TEMP 98.4; O2SAT 97
[2023-01-16] MEDS: CLOZAPINE 25 MG TABLET PO SCH (21:12)
[2023-01-17 08:00] VITALS: BP 121/64; TEMP 97.8; O2SAT 95
[2023-01-17] MEDS: PANTOPRAZOLE 40 MG TABLET.DR PO SCH (08:34)
[2023-01-17] MEDS: DOCUSATE SODIUM 100 MG CAPSULE PO SCH (08:34)
[2023-01-17 08:35] VITALS: BP 121/64
[2023-01-17] MEDS: AMLODIPINE BESYLATE 5 MG TABLET PO SCH (08:35)
[2023-01-17] MEDS: LITHIUM CARBONATE 150 MG CAPSULE PO SCH ×2 (08:35→12:07)
[2023-01-17] MEDS: risperiDONE 1 MG TABLET PO SCH ×2 (08:35→12:07)
[2023-01-17] MEDS: NYSTATIN TOP POWDER 15 GM BOTTLE TP SCH (09:47)
[2023-01-17] MEDS: LamoTRIgine 100 MG TABLET PO SCH (12:07)
== END 2023-01-17 13:35 | DRG 885 ==
LOC: ER 19:47 → GPS 01-03 00:56
PROVIDERS: ADMIT Psychiatry & Neurology Psychosomatic Medicine; ATTEND Internal Medicine
DX: F25.0 Schizoaffective disorder, bipolar type (principal); E44.1 Mild protein-calorie malnutrition; E11.9 Type 2 diabetes mellitus without complications; Z96.651 Presence of right artificial knee joint; G31.84 Mild cognitive impairment of uncertain or unknown etiology; Z79.899 Other long term (current) drug therapy; K21.9 Gastro-esophageal reflux disease without esophagitis; I10 Essential (primary) hypertension; E66.9 Obesity, unspecified; E88.09 Other disorders of plasma-protein metabolism, not elsewhere classified; K29.70 Gastritis, unspecified, without bleeding; Z68.35 Body mass index [BMI] 35.0-35.9, adult; Z87.440 Personal history of urinary (tract) infections; Z87.19 Personal history of other diseases of the digestive system
CPT/HCPCS: 36415; 80048-TC; 80053-TC; 80076-TC; 80164-TC; 82962-TC; 85025-TC; 97116-TC; 97530-TC; G0480; Q0162

== ENCOUNTER 2023-01-24 19:44 | Inpatient (IN) | payer MEDICARE, BC ==
[~2023-01-24] VITALS: Ht 167.6 cm; Wt 75.7 kg
[~2023-01-24 19:44] MED LIST changes: -ACET-2605 PO; -ACET-868 PO; +ARIP10TA9 PO; -ARIP20TA4 PO; -ARIP5TAB10 PO; -BENZ0.5T43 PO; +BUPR150T10 PO; +CLOZ25TA4 PO; -FAMO-131 PO; -LIPA1CAP36 PO; -MAG30ORA PO; -OLAN2.5T3 PO; +RISP3TAB5 PO; +ZOLP10TA2 PO; -ZOLP5TAB2 PO; +omeprazole
[2023-01-24 20:44] LABS: BASOPHILS % (AUTO) 0.6 % (0.0-2.0); HEMATOCRIT 39 % (33-45); HEMOGLOBIN 12.9 g/dL (11.5-14.8); LYMPHOCYTES # (AUTO) 1.3 K/uL (0.8-4.8); LYMPHOCYTES % (AUTO) 17.3 % (20.0-44.0); MEAN CORPUSCULAR HEMOGLOBIN 31 PG (26.0-33.0); MEAN CORPUSCULAR HGB CONC 33 g/dl (31.0-36.0); MEAN CORPUSCULAR VOLUME 94 fL (82-100); MONOCYTES # (AUTO) 0.7 K/uL (0.1-1.30); MONOCYTES % (AUTO) 9.9 % (2.0-12.0); NEUTROPHILS # (AUTO) 5.4 K/uL (1.8-8.9); NEUTROPHILS % (AUTO) 72.2 % (43.0-81.0); PLATELET COUNT (AUTO) 216 K/uL (150-450); RED BLOOD CELL COUNT(AUTO) 4.15 MIL/uL (4.0-5.2); RED CELL DISTRIBUTION WIDTH 13.9 % (11.5-15.0); WHITE BLOOD COUNT (AUTO) 7.4 K/uL (4.3-11.0)
[2023-01-24 21:00] LABS: SERUM AMMONIA 4 umol/L (11-32)
[2023-01-24 21:05] LABS: ALANINE AMINOTRANSFERASE 18 U/L (12-78); ALBUMIN 3.7 g/dL (3.4-5.0); ALKALINE PHOSPHATASE 92 U/L (46-116); ASPARTATE AMINOTRANSFERASE 12 U/L (15-37); BILIRUBIN,DIRECT 0.2 mg/dL (0.0-0.2); BILIRUBIN,TOTAL 0.6 mg/dL (0.2-1.0); CALCIUM, SERUM 10.5 mg/dL (8.5-10.1); CARBON DIOXIDE 28 mmol/L (21-32); CHLORIDE 106 mmol/L (98-107); GLUCOSE 117 mg/dL (74-106); POTASSIUM 4.2 mmol/L (3.5-5.1); SODIUM SERUM 140 mmol/L (136-145); TOTAL PROTEIN, SERUM 6.8 g/dL (6.4-8.2); UREA NITROGEN, BLOOD 18 mg/dL (7-18)
[2023-01-24 21:09] LABS: ACETAMINOPHEN <10 ug/ml (10-30); ALCOHOL, BLOOD < 3 mg/dL (0-10); SALICYLATE < 2.3 mg/dL (2.8-20.0)
[2023-01-24 22:21] LABS: APPEARANCE,URINE SLIGHTLY CLOUDY (CLEAR); BILIRUBIN,URINE NEGATIVE (NEGATIVE); BLOOD, URINE NEGATIVE Ery/uL (NEGATIVE); COLOR,URINE YELLOW (YELLOW); KETONES,URINE 1+ mg/dL (NEGATIVE); LEUKOCYTE ESTERASE ,URINE 1+ (NEGATIVE); NITRITE, URINE POSITIVE (NEGATIVE); PH,URINE 6.5 (5.0-8.0); PROTEIN,URINE NEGATIVE (NEGATIVE); UGLUCOSE NEGATIVE (NEGATIVE)
[2023-01-24 22:28] LABS: AMPHETAMINE, URINE NEGATIVE (NEGATIVE); BARBITURATE, URINE NEGATIVE (NEGATIVE); BENZODIAZEPINE, URINE NEGATIVE (NEGATIVE); CANNABINOID, URINE NEGATIVE (NEGATIVE); COCCAINE, URINE NEGATIVE (NEGATIVE); OPIATE, URINE NEGATIVE (NEGATIVE); PHENCYCLIDINE SCREEN,URINE NEGATIVE (NEGATIVE)
[2023-01-24 22:39] LABS: ADD URINE CULTURE YES; BACTERIA,URINE 4+ /HPF (None Seen); RBC,URINE NONE SEEN /HPF (0-2); SQUAMOUS EPITHELIAL CELL,UR None Seen /HPF (None Seen)
[2023-01-24 23:30] VITALS: BP 122/71; TEMP 97.5; O2SAT 97
[2023-01-24] MEDS ORDERED: MAG HYDROX/AL HYDROX/SIMETH 30 ML UDC PO PRN (23:30)
[2023-01-24] MEDS ORDERED: ONDANSETRON HCL/PF 4 MG/2 ML VIAL IVP PRN (23:30)
[2023-01-24] MEDS ORDERED: ZOLPIDEM TARTRATE 5 MG TABLET PO PRN (23:30)
[2023-01-24] MEDS ORDERED: MAGNESIUM HYDROXIDE 30 ML UDC PO PRN (23:30)
[2023-01-24] MEDS ORDERED: ACETAMINOPHEN 325 MG TABLET PO PRN (23:30)
[2023-01-24] MEDS ORDERED: Z GUARD REMEDY 4 OZ OINT TP PRN (23:30)
[2023-01-25] VITALS: BP 122/71; TEMP 97.5; O2SAT 96
[2023-01-25] MEDS ORDERED: CEFTRIAXONE 1GM BAG (ER ONLY) 1 GM/50 ML PIGGYBACK IV ONE
[2023-01-25 00:30] VITALS: BP 122/71; TEMP 97.8; O2SAT 96
[2023-01-25] MEDS: ENOXAPARIN SODIUM 40 MG/0.4 ML DISP.SYRIN SQ SCH ×2 (00:49→20:31)
[2023-01-25] MEDS: IV D5/0.45 NACL 1,000 ML IV PRN ×2 (00:56→15:08)
[2023-01-25] MEDS ORDERED: DEXTROSE 50%-WATER 50 ML DISP.SYRIN IV PRN (06:00)
[2023-01-25] MEDS ORDERED: ZOLPIDEM TARTRATE 10 MG TABLET PO PRN (06:00)
[2023-01-25] MEDS ORDERED: *INSULIN REGULAR(HUMULIN R)HUM 100 UNIT/ML VIAL SQ PRN (06:00)
[2023-01-25] MEDS: BLOOD SUGAR DIAGNOSTIC 1 EACH STRIP VI SCH ×4 (06:35→22:47)
[2023-01-25 06:57] LABS: BASOPHILS % (AUTO) 0.5 % (0.0-2.0); HEMATOCRIT 36 % (33-45); HEMOGLOBIN 12.1 g/dL (11.5-14.8); LYMPHOCYTES # (AUTO) 1.7 K/uL (0.8-4.8); LYMPHOCYTES % (AUTO) 25.3 % (20.0-44.0); MEAN CORPUSCULAR HEMOGLOBIN 32 PG (26.0-33.0); MEAN CORPUSCULAR HGB CONC 33 g/dl (31.0-36.0); MEAN CORPUSCULAR VOLUME 94 fL (82-100); MONOCYTES # (AUTO) 0.8 K/uL (0.1-1.30); MONOCYTES % (AUTO) 11.2 % (2.0-12.0); NEUTROPHILS # (AUTO) 4.2 K/uL (1.8-8.9); PLATELET COUNT (AUTO) 205 K/uL (150-450); RED BLOOD CELL COUNT(AUTO) 3.84 MIL/uL (4.0-5.2); RED CELL DISTRIBUTION WIDTH 13.5 % (11.5-15.0); WHITE BLOOD COUNT (AUTO) 6.7 K/uL (4.3-11.0)
[2023-01-25] MEDS ORDERED: ARIPIPRAZOLE 5 MG TABLET PO SCH (07:00)
[2023-01-25 07:12] LABS: CALCIUM, SERUM 9.9 mg/dL (8.5-10.1); MAGNESIUM 2.5 mg/dL (1.8-2.4); PHOSPHORUS 3.8 mg/dL (2.5-4.9)
[2023-01-25 07:27] LABS: THYROID STIMULATING HORMONE 5.188 uIU/mL (0.358-3.74)
[2023-01-25 07:30] VITALS: BP 109/64; TEMP 98.1; O2SAT 97
[2023-01-25] MEDS ORDERED: LITH150C PO (07:55)
[2023-01-25] MEDS ORDERED: TEMA7.5C12 PO (07:55)
[2023-01-25] MEDS ORDERED: RISP0.2515 PO (07:55)
[2023-01-25] MEDS ORDERED: AMLO-212 PO (07:55)
[2023-01-25] MEDS ORDERED: LORA-259 PO (07:55)
[2023-01-25] MEDS ORDERED: PANT40TA49 PO (07:55)
[2023-01-25] MEDS ORDERED: MAGN400O6 PO (07:55)
[2023-01-25] MEDS ORDERED: LAMO100T17 PO (07:55)
[2023-01-25] MEDS ORDERED: LITH300T3 PO (07:55)
[2023-01-25] MEDS ORDERED: LACT-246 PO (07:55)
[2023-01-25] MEDS ORDERED: ACET-868 PO (07:55)
[2023-01-25] MEDS ORDERED: ALLA266C2 TP (07:55)
[2023-01-25] MEDS ORDERED: CRAN425C6 PO (07:55)
[2023-01-25] MEDS ORDERED: BISA10SU11 RC (07:55)
[2023-01-25] MEDS ORDERED: NA P133E RC (07:55)
[2023-01-25] MEDS: PANTOPRAZOLE 40 MG VIAL IV SCH (08:44)
[2023-01-25] MEDS: LamoTRIgine 100 MG TABLET PO SCH ×2 (09:00→16:59)
[2023-01-25] MEDS ORDERED: buPROPion SR 150 MG TABLET.ER PO SCH (09:00)
[2023-01-25] MEDS: CLOZAPINE 25 MG TABLET PO SCH ×3 (09:00→16:59)
[2023-01-25] MEDS: DOCUSATE SODIUM 100 MG CAPSULE PO SCH (09:00)
[2023-01-25] MEDS: risperiDONE 1 MG TABLET PO SCH ×3 (09:00→20:30)
[2023-01-25] MEDS: INSULIN REGULAR, HUMAN 100 UNIT/ML 3 ML VIAL SQ PRN ×2 (11:29→17:00)
[2023-01-25 16:00] VITALS: BP 98/49; TEMP 97.6; O2SAT 98
[2023-01-25 19:00] VITALS: BP 109/62; TEMP 97.8; O2SAT 94
[2023-01-25] MEDS ORDERED: LITHIUM CARBONATE (300 MG CAP) 300 MG CAPSULE PO SCH (20:00)
[2023-01-25] MEDS: CEFTRIAXONE 1 G in IV D5W 50 ML IV SCH (23:14)
[2023-01-26 04:00] VITALS: BP 110/62; TEMP 99.9; O2SAT 96
[2023-01-26] MEDS: risperiDONE 1 MG TABLET PO SCH ×3 (04:17→20:59)
[2023-01-26] MEDS: IV D5/0.45 NACL 1,000 ML IV PRN ×2 (05:07→16:46)
[2023-01-26] MEDS: BLOOD SUGAR DIAGNOSTIC 1 EACH STRIP VI SCH ×4 (06:38→23:10)
[2023-01-26] MEDS: INSULIN REGULAR, HUMAN 100 UNIT/ML 3 ML VIAL SQ PRN ×3 (06:39→17:12)
[2023-01-26 07:49] LABS: POTASSIUM 3.8 mmol/L (3.5-5.1)
[2023-01-26 07:53] LABS: BASOPHILS % (AUTO) 0.6 % (0.0-2.0); HEMATOCRIT 36 % (33-45); HEMOGLOBIN 11.7 g/dL (11.5-14.8); LYMPHOCYTES % (AUTO) 29.4 % (20.0-44.0); MEAN CORPUSCULAR HEMOGLOBIN 31 PG (26.0-33.0); MEAN CORPUSCULAR HGB CONC 33 g/dl (31.0-36.0); MEAN CORPUSCULAR VOLUME 95 fL (82-100); MONOCYTES # (AUTO) 0.8 K/uL (0.1-1.30); MONOCYTES % (AUTO) 11.4 % (2.0-12.0); NEUTROPHILS # (AUTO) 3.9 K/uL (1.8-8.9); NEUTROPHILS % (AUTO) 58.6 % (43.0-81.0); PLATELET COUNT (AUTO) 199 K/uL (150-450); RED BLOOD CELL COUNT(AUTO) 3.74 MIL/uL (4.0-5.2); RED CELL DISTRIBUTION WIDTH 13.7 % (11.5-15.0); WHITE BLOOD COUNT (AUTO) 6.7 K/uL (4.3-11.0)
[2023-01-26 08:00] VITALS: BP 115/68; TEMP 97.6; O2SAT 97
[2023-01-26] MEDS: PANTOPRAZOLE 40 MG VIAL IV SCH (09:29)
[2023-01-26] MEDS: LITHIUM CARBONATE 150 MG CAPSULE PO SCH ×2 (09:29→16:46)
[2023-01-26] MEDS: DOCUSATE SODIUM 100 MG CAPSULE PO SCH (09:30)
[2023-01-26] MEDS: LamoTRIgine 100 MG TABLET PO SCH (09:30)
[2023-01-26] MEDS: AMLODIPINE BESYLATE 5 MG TABLET PO SCH (09:30)
[2023-01-26 19:20] VITALS: BP 109/69; TEMP 98.2; O2SAT 96
[2023-01-26] MEDS ORDERED: LITHIUM CARBONATE (300 MG CAP) 300 MG CAPSULE PO SCH (21:00)
[2023-01-26] MEDS: ENOXAPARIN SODIUM 40 MG/0.4 ML DISP.SYRIN SQ SCH (21:03)
[2023-01-26] MEDS ORDERED: LamoTRIgine 100 MG TABLET PO SCH (22:00)
[2023-01-27] MEDS: CEFTRIAXONE 1 G in IV D5W 50 ML IV SCH (01:10)
[2023-01-27] MEDS: IV D5/0.45 NACL 1,000 ML IV PRN (04:12)
[2023-01-27] MEDS: risperiDONE 1 MG TABLET PO SCH ×2 (06:01→13:14)
[2023-01-27 06:24] LABS: BASOPHILS % (AUTO) 0.5 % (0.0-2.0); HEMATOCRIT 35 % (33-45); HEMOGLOBIN 11.4 g/dL (11.5-14.8); LYMPHOCYTES # (AUTO) 1.9 K/uL (0.8-4.8); LYMPHOCYTES % (AUTO) 30.5 % (20.0-44.0); MEAN CORPUSCULAR HEMOGLOBIN 31 PG (26.0-33.0); MEAN CORPUSCULAR HGB CONC 33 g/dl (31.0-36.0); MEAN CORPUSCULAR VOLUME 95 fL (82-100); MONOCYTES # (AUTO) 0.7 K/uL (0.1-1.30); MONOCYTES % (AUTO) 10.6 % (2.0-12.0); NEUTROPHILS # (AUTO) 3.6 K/uL (1.8-8.9); NEUTROPHILS % (AUTO) 58.4 % (43.0-81.0); PLATELET COUNT (AUTO) 177 K/uL (150-450); RED BLOOD CELL COUNT(AUTO) 3.66 MIL/uL (4.0-5.2); RED CELL DISTRIBUTION WIDTH 13.6 % (11.5-15.0); WHITE BLOOD COUNT (AUTO) 6.2 K/uL (4.3-11.0)
[2023-01-27 06:52] LABS: CALCIUM, SERUM 9.8 mg/dL (8.5-10.1); CREATININE 0.9 mg/dL (0.6-1.3); MAGNESIUM 2.1 mg/dL (1.8-2.4); PHOSPHORUS 3.8 mg/dL (2.5-4.9); POTASSIUM 3.7 mmol/L (3.5-5.1)
[2023-01-27] MEDS: BLOOD SUGAR DIAGNOSTIC 1 EACH STRIP VI SCH ×2 (07:10→13:14)
[2023-01-27] MEDS: INSULIN REGULAR, HUMAN 100 UNIT/ML 3 ML VIAL SQ PRN ×2 (07:13→13:14)
[2023-01-27 08:00] VITALS: BP 125/64; TEMP 98.8; O2SAT 98
[2023-01-27 08:44] VITALS: BP 110/65
[2023-01-27] MEDS: LITHIUM CARBONATE 150 MG CAPSULE PO SCH (08:44)
[2023-01-27] MEDS: LamoTRIgine 100 MG TABLET PO SCH (08:44)
[2023-01-27] MEDS: AMLODIPINE BESYLATE 5 MG TABLET PO SCH (08:44)
[2023-01-27] MEDS: DOCUSATE SODIUM 100 MG CAPSULE PO SCH (08:44)
[2023-01-27] MEDS ORDERED: PANTOPRAZOLE 40 MG/PACK PACK PO SCH (09:00)
[2023-01-27] MEDS ORDERED: CEPH500C2 PO (09:06)
[2023-01-27] MEDS ORDERED: ENSURE ENLIVE 237 ML LIQUID (VANILLA) PO SCH (17:00)
[2023-01-27] MEDS ORDERED: risperiDONE 1 MG TABLET PO SCH (22:00)
[2023-01-28] MEDS ORDERED: risperiDONE 1 MG TABLET PO SCH (09:00)
== END 2023-01-27 14:40 | DRG 689 ==
LOC: ER 20:02 → MED 23:45
PROVIDERS: ADMIT Student in an Organized Health Care Education/Training Program; ATTEND Internal Medicine
DX: N39.0 Urinary tract infection, site not specified (principal); G93.41 Metabolic encephalopathy; F05 Delirium due to known physiological condition; R62.7 Adult failure to thrive; K29.70 Gastritis, unspecified, without bleeding; K21.9 Gastro-esophageal reflux disease without esophagitis; E11.9 Type 2 diabetes mellitus without complications; Z96.651 Presence of right artificial knee joint; Z20.822 Contact with and (suspected) exposure to COVID-19; Z79.899 Other long term (current) drug therapy; F25.0 Schizoaffective disorder, bipolar type; Z87.440 Personal history of urinary (tract) infections; F41.9 Anxiety disorder, unspecified; G31.84 Mild cognitive impairment of uncertain or unknown etiology; Z79.84 Long term (current) use of oral hypoglycemic drugs
CPT/HCPCS: 36415; 70450-TC; 80048-TC; 80076-TC; 81001; 82140-TC; 82962-TC; 83735-TC; 84100-TC; 84443-TC; 85025-TC; 87081-TC; 87086-TC; 92526; 92611-TC; A4223; C9113; G0378; G0480; J0696; J1650; J1815; J3490; J7060

== ENCOUNTER 2023-02-18 17:31 | Inpatient (IN) | payer MEDICARE, BC ==
[~2023-02-18] VITALS: Ht 165.1 cm; Wt 71.8 kg
[~2023-02-18 17:31] MED LIST changes: +ACET-868 PO; +ALLA266C2 TP; +AMLO-212 PO; -ARIP10TA9 PO; +BISA10SU11 RC; -BUPR150T10 PO; +CEPH500C2 PO; -CLOZ25TA4 PO; +CRAN425C6 PO; +LACT-246 PO; +LAMO100T17 PO; +LITH150C PO; +LITH300T3 PO; +LORA-259 PO; +MAGN400O6 PO; +NA P133E RC; +PANT40TA49 PO; +RISP0.2515 PO; -RISP3TAB5 PO; +TEMA7.5C12 PO; -ZOLP10TA2 PO; -omeprazole
[2023-02-18] MEDS ORDERED: IV NS 0.9% 500 ML BAG IV ONE (18:00)
[2023-02-18] MEDS ORDERED: NUT.250L18 PO (18:10)
[2023-02-18] MEDS ORDERED: INSU100V3 SQ (18:10)
[2023-02-18] MEDS ORDERED: SENN-261 PO (18:10)
[2023-02-18] MEDS ORDERED: TOLN45PO2 TP (18:10)
[2023-02-18] MEDS ORDERED: ALLA266C2 TP (18:10)
[2023-02-18] MEDS ORDERED: GLUC1KIT IM (18:10)
[2023-02-18 18:35] LABS: BASOPHILS # (AUTO) 0.1 K/uL (0.0-0.2); BASOPHILS % (AUTO) 0.7 % (0.0-2.0); HEMATOCRIT 43 % (33-45); HEMOGLOBIN 13.6 g/dL (11.5-14.8); LYMPHOCYTES # (AUTO) 1.7 K/uL (0.8-4.8); LYMPHOCYTES % (AUTO) 17.2 % (20.0-44.0); MEAN CORPUSCULAR HEMOGLOBIN 31 PG (26.0-33.0); MEAN CORPUSCULAR HGB CONC 32 g/dl (31.0-36.0); MEAN CORPUSCULAR VOLUME 97 fL (82-100); MONOCYTES # (AUTO) 0.9 K/uL (0.1-1.30); MONOCYTES % (AUTO) 9.2 % (2.0-12.0); NEUTROPHILS % (AUTO) 72.9 % (43.0-81.0); PLATELET COUNT (AUTO) 215 K/uL (150-450); RED CELL DISTRIBUTION WIDTH 14.6 % (11.5-15.0); WHITE BLOOD COUNT (AUTO) 9.6 K/uL (4.3-11.0)
[2023-02-18 18:50] LABS: CALCIUM, SERUM 10.4 mg/dL (8.5-10.1); CARBON DIOXIDE 24 mmol/L (21-32); CHLORIDE 109 mmol/L (98-107); CREATININE 1.3 mg/dL (0.6-1.3); GLUCOSE 96 mg/dL (74-106); POTASSIUM 4.1 mmol/L (3.5-5.1); SODIUM SERUM 143 mmol/L (136-145); UREA NITROGEN, BLOOD 25 mg/dL (7-18)
[2023-02-18 18:52] LABS: INR 1.09 (0.91-1.10); PARTIAL THROMBOPLASTIN TIME 29.7 SEC (24.3-34.3); PROTHROMBIN TIME 11.4 SECS (9.2-11.1)
[2023-02-18 18:54] LABS: LACTIC ACID 0.9 mmol/L (0.4-2.0)
[2023-02-18 19:01] LABS: ALANINE AMINOTRANSFERASE 23 U/L (12-78); ALBUMIN 3.9 g/dL (3.4-5.0); ALKALINE PHOSPHATASE 72 U/L (46-116); ASPARTATE AMINOTRANSFERASE 23 U/L (15-37); BILIRUBIN,DIRECT 0.2 mg/dL (0.0-0.2); BILIRUBIN,TOTAL 0.6 mg/dL (0.2-1.0); TOTAL PROTEIN, SERUM 6.9 g/dL (6.4-8.2)
[2023-02-18 19:40] LABS: APPEARANCE,URINE CLOUDY (CLEAR); BILIRUBIN,URINE NEGATIVE (NEGATIVE); BLOOD, URINE TRACE-INTA Ery/uL (NEGATIVE); COLOR,URINE YELLOW (YELLOW); KETONES,URINE 2+ mg/dL (NEGATIVE); LEUKOCYTE ESTERASE ,URINE 3+ (NEGATIVE); NITRITE, URINE POSITIVE (NEGATIVE); PROTEIN,URINE 3+ mg/dl (NEGATIVE); UGLUCOSE NEGATIVE (NEGATIVE)
[2023-02-18 19:41] LABS: PH,URINE >8.5 (5.0-8.0)
[2023-02-18 20:07] LABS: ADD URINE CULTURE YES; BACTERIA,URINE 3+ /HPF (None Seen); MUCUS,URINE Moderate /LPF (None Seen); SQUAMOUS EPITHELIAL CELL,UR 0-2 /HPF (None Seen); WBC,URINE 51-80 /HPF (0-3)
[2023-02-18] MEDS ORDERED: BISACODYL SUPP (10 MG) 10 MG/SUPP.RECT SUPP.RECT RC PRN (20:30)
[2023-02-18] MEDS ORDERED: CEFTRIAXONE 1GM BAG (ER ONLY) 50 ML IV ONE ×2 (20:30→21:48)
[2023-02-18] MEDS ORDERED: MAGNESIUM HYDROXIDE 30 ML UDC PO PRN (20:30)
[2023-02-18] MEDS ORDERED: NA PHOS,M-B/NA PHOS,DI-BA 1 EA ENEMA RC PRN (20:30)
[2023-02-18] MEDS ORDERED: ACETAMINOPHEN 325 MG TABLET PO PRN (20:30)
[2023-02-18] MEDS ORDERED: Z GUARD REMEDY 4 OZ OINT TP PRN (20:30)
[2023-02-18] MEDS ORDERED: ONDANSETRON HCL/PF 4 MG/2 ML VIAL IVP PRN (20:30)
[2023-02-18] MEDS ORDERED: ENOXAPARIN SODIUM 40 MG/0.4 ML DISP.SYRIN SQ ONE (21:48)
[2023-02-18] MEDS: ENOXAPARIN SODIUM 40 MG/0.4 ML DISP.SYRIN SQ SCH (21:56)
[2023-02-18 22:00] VITALS: BP 132/83; TEMP 98.1; O2SAT 95
[2023-02-18] MEDS: CEFTRIAXONE 1 G in IV D5W 50 ML IV SCH (22:47)
[2023-02-18] MEDS: LamoTRIgine 100 MG TABLET PO SCH (22:57)
[2023-02-18] MEDS: SENNOSIDES 8.6 MG TABLET PO SCH (22:57)
[2023-02-18] MEDS: IV 1/2NS 1000 ML 1,000 ML IV PRN (23:01)
[2023-02-19] VITALS: BP 132/83; TEMP 98.1; O2SAT 95
[2023-02-19 06:53] LABS: BASOPHILS # (AUTO) 0.1 K/uL (0.0-0.2); BASOPHILS % (AUTO) 0.8 % (0.0-2.0); HEMATOCRIT 38 % (33-45); HEMOGLOBIN 12.5 g/dL (11.5-14.8); LYMPHOCYTES # (AUTO) 1.7 K/uL (0.8-4.8); LYMPHOCYTES % (AUTO) 25.3 % (20.0-44.0); MEAN CORPUSCULAR HEMOGLOBIN 31 PG (26.0-33.0); MEAN CORPUSCULAR HGB CONC 33 g/dl (31.0-36.0); MEAN CORPUSCULAR VOLUME 95 fL (82-100); MONOCYTES # (AUTO) 0.7 K/uL (0.1-1.30); MONOCYTES % (AUTO) 11.1 % (2.0-12.0); NEUTROPHILS # (AUTO) 4.1 K/uL (1.8-8.9); NEUTROPHILS % (AUTO) 62.8 % (43.0-81.0); PLATELET COUNT (AUTO) 191 K/uL (150-450); RED CELL DISTRIBUTION WIDTH 14.1 % (11.5-15.0); WHITE BLOOD COUNT (AUTO) 6.5 K/uL (4.3-11.0)
[2023-02-19 07:00] VITALS: BP 113/75; TEMP 97.5; O2SAT 98
[2023-02-19 07:40] LABS: CALCIUM, SERUM 9.9 mg/dL (8.5-10.1); CARBON DIOXIDE 26 mmol/L (21-32); CHLORIDE 109 mmol/L (98-107); GLUCOSE 113 mg/dL (74-106); MAGNESIUM 2.3 mg/dL (1.8-2.4); PHOSPHORUS 3.6 mg/dL (2.5-4.9); POTASSIUM 3.7 mmol/L (3.5-5.1); SODIUM SERUM 144 mmol/L (136-145); UREA NITROGEN, BLOOD 20 mg/dL (7-18)
[2023-02-19] MEDS: DOCUSATE SODIUM 100 MG CAPSULE PO SCH (08:49)
[2023-02-19] MEDS: PANTOPRAZOLE 40 MG TABLET.DR PO SCH (08:49)
[2023-02-19] MEDS: LITHIUM CARBONATE 150 MG CAPSULE PO SCH ×2 (08:49→17:25)
[2023-02-19] MEDS: AMLODIPINE BESYLATE 5 MG TABLET PO SCH (08:49)
[2023-02-19] MEDS: ENSURE ENLIVE 237 ML LIQUID (VANILLA) PO SCH ×2 (13:22→17:20)
[2023-02-19] MEDS: IV 1/2NS 1000 ML 1,000 ML IV PRN (14:18)
[2023-02-19 16:00] VITALS: BP 132/70; TEMP 98.4; O2SAT 95
[2023-02-19] MEDS: CEFTRIAXONE 1 G in IV D5W 50 ML IV SCH (21:08)
[2023-02-19] MEDS: SENNOSIDES 8.6 MG TABLET PO SCH (21:09)
[2023-02-19] MEDS: LamoTRIgine 100 MG TABLET PO SCH (21:09)
[2023-02-19] MEDS: ENOXAPARIN SODIUM 40 MG/0.4 ML DISP.SYRIN SQ SCH (21:11)
[2023-02-20 07:07] LABS: BASOPHILS % (AUTO) 0.6 % (0.0-2.0); HEMATOCRIT 37 % (33-45); LYMPHOCYTES # (AUTO) 1.9 K/uL (0.8-4.8); LYMPHOCYTES % (AUTO) 28.7 % (20.0-44.0); MEAN CORPUSCULAR HEMOGLOBIN 32 PG (26.0-33.0); MEAN CORPUSCULAR HGB CONC 33 g/dl (31.0-36.0); MEAN CORPUSCULAR VOLUME 96 fL (82-100); MONOCYTES # (AUTO) 0.7 K/uL (0.1-1.30); MONOCYTES % (AUTO) 10.9 % (2.0-12.0); NEUTROPHILS % (AUTO) 59.8 % (43.0-81.0); PLATELET COUNT (AUTO) 183 K/uL (150-450); RED BLOOD CELL COUNT(AUTO) 3.82 MIL/uL (4.0-5.2); WHITE BLOOD COUNT (AUTO) 6.6 K/uL (4.3-11.0)
[2023-02-20 07:20] LABS: CALCIUM, SERUM 9.8 mg/dL (8.5-10.1); CARBON DIOXIDE 26 mmol/L (21-32); CHLORIDE 109 mmol/L (98-107); GLUCOSE 95 mg/dL (74-106); MAGNESIUM 2.1 mg/dL (1.8-2.4); PHOSPHORUS 3.3 mg/dL (2.5-4.9); POTASSIUM 3.9 mmol/L (3.5-5.1); SODIUM SERUM 141 mmol/L (136-145); UREA NITROGEN, BLOOD 12 mg/dL (7-18)
[2023-02-20 08:00] VITALS: BP 98/50; TEMP 98.2; O2SAT 96
[2023-02-20] MEDS: ENSURE ENLIVE 237 ML LIQUID (VANILLA) PO SCH ×3 (08:11→16:33)
[2023-02-20] MEDS: AMLODIPINE BESYLATE 5 MG TABLET PO SCH (08:48)
[2023-02-20] MEDS: PANTOPRAZOLE 40 MG TABLET.DR PO SCH (08:53)
[2023-02-20] MEDS: DOCUSATE SODIUM 100 MG CAPSULE PO SCH (08:53)
[2023-02-20] MEDS: LITHIUM CARBONATE 150 MG CAPSULE PO SCH ×2 (08:54→16:43)
[2023-02-20] MEDS: IV 1/2NS 1000 ML 1,000 ML IV PRN (12:21)
[2023-02-20 16:00] VITALS: BP 101/58; TEMP 98.4; O2SAT 96
[2023-02-20 19:00] VITALS: BP 110/46; TEMP 97.2; O2SAT 99
[2023-02-20] MEDS: CEFTRIAXONE 1 G in IV D5W 50 ML IV SCH (20:18)
[2023-02-20] MEDS: ENOXAPARIN SODIUM 40 MG/0.4 ML DISP.SYRIN SQ SCH (20:27)
[2023-02-20] MEDS: LamoTRIgine 100 MG TABLET PO SCH (21:42)
[2023-02-20] MEDS: SENNOSIDES 8.6 MG TABLET PO SCH (21:42)
[2023-02-21] MEDS: IV 1/2NS 1000 ML 1,000 ML IV PRN (03:36)
[2023-02-21 06:23] LABS: BASOPHILS % (AUTO) 0.7 % (0.0-2.0); HEMATOCRIT 36 % (33-45); HEMOGLOBIN 11.5 g/dL (11.5-14.8); LYMPHOCYTES # (AUTO) 2.2 K/uL (0.8-4.8); LYMPHOCYTES % (AUTO) 34.6 % (20.0-44.0); MEAN CORPUSCULAR HEMOGLOBIN 31 PG (26.0-33.0); MEAN CORPUSCULAR HGB CONC 32 g/dl (31.0-36.0); MEAN CORPUSCULAR VOLUME 97 fL (82-100); MONOCYTES # (AUTO) 0.7 K/uL (0.1-1.30); MONOCYTES % (AUTO) 10.8 % (2.0-12.0); NEUTROPHILS # (AUTO) 3.5 K/uL (1.8-8.9); NEUTROPHILS % (AUTO) 53.9 % (43.0-81.0); PLATELET COUNT (AUTO) 155 K/uL (150-450); RED BLOOD CELL COUNT(AUTO) 3.66 MIL/uL (4.0-5.2); RED CELL DISTRIBUTION WIDTH 14.2 % (11.5-15.0); WHITE BLOOD COUNT (AUTO) 6.4 K/uL (4.3-11.0)
[2023-02-21 06:55] LABS: CALCIUM, SERUM 9.4 mg/dL (8.5-10.1); CARBON DIOXIDE 22 mmol/L (21-32); CHLORIDE 107 mmol/L (98-107); CREATININE 0.9 mg/dL (0.6-1.3); GLUCOSE 90 mg/dL (74-106); MAGNESIUM 2.2 mg/dL (1.8-2.4); PHOSPHORUS 3.5 mg/dL (2.5-4.9); POTASSIUM 3.5 mmol/L (3.5-5.1); SODIUM SERUM 139 mmol/L (136-145); UREA NITROGEN, BLOOD 13 mg/dL (7-18)
[2023-02-21 07:30] VITALS: BP 145/94; TEMP 97.5; O2SAT 100
[2023-02-21] MEDS: LITHIUM CARBONATE 150 MG CAPSULE PO SCH ×2 (08:26→16:08)
[2023-02-21] MEDS: DOCUSATE SODIUM 100 MG CAPSULE PO SCH (08:26)
[2023-02-21] MEDS: MEGESTROL ACETATE SUSP 400 MG/10 ML UDC PO SCH (08:26)
[2023-02-21] MEDS: PANTOPRAZOLE 40 MG TABLET.DR PO SCH (08:26)
[2023-02-21] MEDS: ENSURE ENLIVE 237 ML LIQUID (VANILLA) PO SCH ×3 (08:27→17:06)
[2023-02-21] MEDS: AMLODIPINE BESYLATE 5 MG TABLET PO SCH (08:27)
[2023-02-21 20:00] VITALS: BP 122/67; TEMP 97.8; O2SAT 98
[2023-02-21 20:30] VITALS: BP 122/67; TEMP 98; O2SAT 98
[2023-02-21] MEDS: ENOXAPARIN SODIUM 40 MG/0.4 ML DISP.SYRIN SQ SCH (21:13)
[2023-02-21] MEDS: CEFTRIAXONE 1 G in IV D5W 50 ML IV SCH (21:14)
[2023-02-21] MEDS: LamoTRIgine 100 MG TABLET PO SCH (21:32)
[2023-02-21] MEDS: SENNOSIDES 8.6 MG TABLET PO SCH (21:32)
[2023-02-22 06:20] LABS: BASOPHILS % (AUTO) 0.2 % (0.0-2.0); HEMATOCRIT 36 % (33-45); LYMPHOCYTES # (AUTO) 1.7 K/uL (0.8-4.8); LYMPHOCYTES % (AUTO) 21.3 % (20.0-44.0); MEAN CORPUSCULAR HEMOGLOBIN 32 PG (26.0-33.0); MEAN CORPUSCULAR HGB CONC 34 g/dl (31.0-36.0); MEAN CORPUSCULAR VOLUME 95 fL (82-100); MONOCYTES # (AUTO) 0.7 K/uL (0.1-1.30); MONOCYTES % (AUTO) 8.4 % (2.0-12.0); NEUTROPHILS # (AUTO) 5.7 K/uL (1.8-8.9); NEUTROPHILS % (AUTO) 70.1 % (43.0-81.0); PLATELET COUNT (AUTO) 171 K/uL (150-450); RED BLOOD CELL COUNT(AUTO) 3.75 MIL/uL (4.0-5.2); RED CELL DISTRIBUTION WIDTH 14.4 % (11.5-15.0); WHITE BLOOD COUNT (AUTO) 8.2 K/uL (4.3-11.0)
[2023-02-22 06:47] LABS: CALCIUM, SERUM 9.8 mg/dL (8.5-10.1); CARBON DIOXIDE 29 mmol/L (21-32); CHLORIDE 110 mmol/L (98-107); CREATININE 0.9 mg/dL (0.6-1.3); GLUCOSE 96 mg/dL (74-106); MAGNESIUM 2.3 mg/dL (1.8-2.4); PHOSPHORUS 2.6 mg/dL (2.5-4.9); POTASSIUM 3.9 mmol/L (3.5-5.1); SODIUM SERUM 145 mmol/L (136-145); UREA NITROGEN, BLOOD 14 mg/dL (7-18)
[2023-02-22] MEDS: PANTOPRAZOLE 40 MG TABLET.DR PO SCH (07:27)
[2023-02-22 08:00] VITALS: BP 131/71; TEMP 98.6; O2SAT 98
[2023-02-22] MEDS: ENSURE ENLIVE 237 ML LIQUID (VANILLA) PO SCH ×3 (08:31→17:10)
[2023-02-22] MEDS: DOCUSATE SODIUM 100 MG CAPSULE PO SCH (08:32)
[2023-02-22] MEDS: MEGESTROL ACETATE SUSP 400 MG/10 ML UDC PO SCH (08:32)
[2023-02-22] MEDS: LITHIUM CARBONATE 150 MG CAPSULE PO SCH ×2 (08:32→16:13)
[2023-02-22] MEDS: AMLODIPINE BESYLATE 5 MG TABLET PO SCH (08:32)
[2023-02-22 16:00] VITALS: BP 127/72; TEMP 99.1; O2SAT 96
[2023-02-22 20:00] VITALS: BP 110/86; TEMP 97.7; O2SAT 95
[2023-02-22] MEDS: LamoTRIgine 100 MG TABLET PO SCH (21:31)
[2023-02-22] MEDS: CEFTRIAXONE 1 G in IV D5W 50 ML IV SCH (21:31)
[2023-02-22] MEDS: ENOXAPARIN SODIUM 40 MG/0.4 ML DISP.SYRIN SQ SCH (21:32)
[2023-02-22] MEDS: SENNOSIDES 8.6 MG TABLET PO SCH (21:32)
[2023-02-23 08:00] VITALS: BP 119/76; TEMP 98.1; O2SAT 98
[2023-02-23] MEDS: MEGESTROL ACETATE SUSP 400 MG/10 ML UDC PO SCH (08:06)
[2023-02-23] MEDS: PANTOPRAZOLE 40 MG TABLET.DR PO SCH (08:06)
[2023-02-23] MEDS: DOCUSATE SODIUM 100 MG CAPSULE PO SCH (08:08)
[2023-02-23] MEDS: LITHIUM CARBONATE 150 MG CAPSULE PO SCH ×2 (08:08→17:00)
[2023-02-23] MEDS: AMLODIPINE BESYLATE 5 MG TABLET PO SCH (08:08)
[2023-02-23] MEDS: ENSURE ENLIVE 237 ML LIQUID (VANILLA) PO SCH ×3 (08:09→17:45)
[2023-02-23] MEDS ORDERED: MEROPENEM 500 MG in IV NS 0.9% 50 ML IV SCH ×5 (13:30→14:00)
[2023-02-23] MEDS ORDERED: MERO500V23 IV (14:00)
[2023-02-23] MEDS ORDERED: AMOX-427 PO (14:04)
[2023-02-23 16:00] VITALS: BP 96/60; TEMP 98.2; O2SAT 99
== END 2023-02-23 17:56 | DRG 640 ==
LOC: ER 17:31 → MED 20:10
PROVIDERS: ADMIT Internal Medicine; ATTEND Student in an Organized Health Care Education/Training Program
DX: R62.7 Adult failure to thrive (principal); G93.41 Metabolic encephalopathy; N39.0 Urinary tract infection, site not specified; N17.9 Acute kidney failure, unspecified; F05 Delirium due to known physiological condition; F03.918 Unspecified dementia, unspecified severity, with other behavioral disturbance; F31.9 Bipolar disorder, unspecified; E11.9 Type 2 diabetes mellitus without complications; K29.70 Gastritis, unspecified, without bleeding; K21.9 Gastro-esophageal reflux disease without esophagitis; Z20.822 Contact with and (suspected) exposure to COVID-19; Z96.651 Presence of right artificial knee joint; Z79.4 Long term (current) use of insulin; Z79.899 Other long term (current) drug therapy; Z79.84 Long term (current) use of oral hypoglycemic drugs; E86.0 Dehydration; E86.9 Volume depletion, unspecified; E83.52 Hypercalcemia; F29 Unspecified psychosis not due to a substance or known physiological condition; Z87.440 Personal history of urinary (tract) infections
CPT/HCPCS: 36415; 71045-TC; 80048-TC; 80076-TC; 81001; 83605-TC; 83735-TC; 84100-TC; 84443-TC; 84484-TC; 85025-TC; 85730-TC; 87040-TC; 87086-TC; A4223; G0378; J0696; J1650; J2185; J3490; J7040; J7060